=== PATIENT | female | born 1950 | race Caucasian/White ===

== ENCOUNTER → 2016-09-08 | Outpatient (REF) | payer MEDICARE, OTHER ==
[~2016-09-08] MED LIST: ATEN50TA2 PO; CALC500T36 PO; EVEN500C2 PO; MULTTAB12 PO; [UNRECOGNIZED DRUG - CODE] PO
== END ==
LOC: M LAB REF 13:26
PROVIDERS: ATTEND Internal Medicine Medical Oncology
DX: C91.10 Chronic lymphocytic leukemia of B-cell type not having achieved remission (principal)

== ENCOUNTER → 2016-09-12 | Day surgery (SDC) | payer MEDICARE, OTHER ==
[~2016-09-12] VITALS: Ht 165.1 cm; Wt 77.6 kg
[~2016-09-12] MED LIST changes: +BACITRACIN OINT 30GM As Ordered ONE; +GLYCOPYRROLATE INJ 0.2 MG/ML 2 ML VIAL As Ordered ONE; +LIDOCAINE 2% INJ 100 MG/5 ML SDV (FOR ANES.) As Ordered ONE; +LIDOCAINE W/EPINEPHRINE 1% 20ML VIAL As Ordered ONE; +LIDOCAINE W/EPINEPHRINE 1% 20ML VIAL XX ONE; +LR 1,000 ML IV SCH; +METOCLOPRAMIDE INJ 10MG/2ML VIAL (J2765) IV PRN; +MIDAZOLAM INJ 2 MG/2 ML VIAL (J2250) As Ordered ONE; +MORPHINE 2 MG/ML 1ML SYRINGE IV PRN; +NEOSTIGMINE 1MG/ML 5 ML SYRINGE (J2710) As Ordered ONE; +ONDANSETRON 4MG/2ML VIAL (J2405) As Ordered ONE; +ONDANSETRON 4MG/2ML VIAL (J2405) IV PRN; +PERCOCET 5MG/325MG TAB PO PRN; +PHENYLephrine HCL 500 MCG/5 ML (100MCG/ML) SYRINGE (J2370) As Ordered ONE; +PROPOFOL 200 MG/20 ML VIAL As Ordered ONE; +ROCURONIUM BROMIDE 50 MG/5 ML VIAL As Ordered ONE; +dexameTHASONE 4 MG/ML 1ML VIAL (J1100) As Ordered ONE; +ePHEDrine SULFATE 25 MG/5 ML(5MG/ML) SYRINGE As Ordered ONE; +fentaNYL 100 MCG/2 ML INJECTION (J3010) IV PRN; +fentaNYL 250 MCG/5 ML INJECTION (J3010) As Ordered ONE
[2016-09-12] MEDS: LR 1,000 ML IV SCH ×2 (10:54→13:58)
[2016-09-12 15:45] VITALS: BP 131/61
--- NOTE | 2016-09-12 18:33 | ECGEPIP ---
Stationary ECG Study [facility] Test Date: 2016-09-12 Pat Name: SANJAY ATKINS Department: Room: - Gender: F Machine Set Up Technician: TISH : 1950 Requested By: EVAN Fontaine Order Number: [id number] Reading MD: Santo Alvarado Measurements Intervals [place] Rate: 74 P: 46 OR: 211 QRS: -1 QRSD: 90 T: -19 QT: 386 QTc: 429 Interpretive Statements SINUS RHYTHM WITH BORDERLINE FIRST DEGREE AV BLOCK LEFT VENTRICULAR HYPERTROPHY NONSPECIFIC T-WAVE ABNORMALITY NO PRIOR TRACING Electronically Signed On 09-12-2016 18:33:35 EST by Santo Alvarado
--- NOTE | 2016-09-13 00:03 | RO ---
DATE OF PROCEDURE: 09/12/2016 PREOPERATIVE DIAGNOSIS: Mass left neck. POSTOPERATIVE DIAGNOSIS: Mass left neck. PROCEDURE: Excisional biopsy of lesion left neck. SURGEON: Dr. Ernesto Alcantar DATABASE SECURITY EXPERT: Layo Parsons ANESTHESIA: DESCRIPTION OF PROCEDURE: Under general anesthesia with the patient intubated, the patient was draped and prepped in the usual manner. I marked out the incision, infiltrated with lidocaine and epinephrine, divided the skin and subcutaneous tissues and platysma. There were mass of lymph nodes. I dissected around them with the cautery and Harmonic scalpel. I removed one of the lymph nodes, which was it was a mass of and then I cauterized the area with the bipolar cautery. Patient tolerated the procedure well. Minimal blood loss. I put in a Yuri drain and closed the wound with #4-0 Vicryl and #5-0 nylon. The patient was transferred to the recovery room in excellent condition.
== END | disposition home or self-care (01) ==
LOC: M SDC 10:04
PROVIDERS: ATTEND Otolaryngology
DX: R22.1 Localized swelling, mass and lump, neck (principal); I10 Essential (primary) hypertension; C91.10 Chronic lymphocytic leukemia of B-cell type not having achieved remission; M12.9 Arthropathy, unspecified; M54.2 Cervicalgia; Z88.0 Allergy status to penicillin; Z88.1 Allergy status to other antibiotic agents; Z88.5 Allergy status to narcotic agent; Z88.8 Allergy status to other drugs, medicaments and biological substances; Z79.899 Other long term (current) drug therapy; Z78.0 Asymptomatic menopausal state; Z98.51 Tubal ligation status; Z87.891 Personal history of nicotine dependence
CPT/HCPCS: 38510; 88305; 93005; J1100; J2250; J2370; J2405; J2710; J3010

== ENCOUNTER → 2016-09-21 | Outpatient (REF) | payer MEDICARE, OTHER ==
[~2016-09-21] MED LIST changes: -BACITRACIN OINT 30GM As Ordered ONE; -GLYCOPYRROLATE INJ 0.2 MG/ML 2 ML VIAL As Ordered ONE; -LIDOCAINE 2% INJ 100 MG/5 ML SDV (FOR ANES.) As Ordered ONE; -LIDOCAINE W/EPINEPHRINE 1% 20ML VIAL As Ordered ONE; -LIDOCAINE W/EPINEPHRINE 1% 20ML VIAL XX ONE; -LR 1,000 ML IV SCH; -METOCLOPRAMIDE INJ 10MG/2ML VIAL (J2765) IV PRN; -MIDAZOLAM INJ 2 MG/2 ML VIAL (J2250) As Ordered ONE; -MORPHINE 2 MG/ML 1ML SYRINGE IV PRN; -NEOSTIGMINE 1MG/ML 5 ML SYRINGE (J2710) As Ordered ONE; -ONDANSETRON 4MG/2ML VIAL (J2405) As Ordered ONE; -ONDANSETRON 4MG/2ML VIAL (J2405) IV PRN; -PERCOCET 5MG/325MG TAB PO PRN; -PHENYLephrine HCL 500 MCG/5 ML (100MCG/ML) SYRINGE (J2370) As Ordered ONE; -PROPOFOL 200 MG/20 ML VIAL As Ordered ONE; -ROCURONIUM BROMIDE 50 MG/5 ML VIAL As Ordered ONE; -dexameTHASONE 4 MG/ML 1ML VIAL (J1100) As Ordered ONE; -ePHEDrine SULFATE 25 MG/5 ML(5MG/ML) SYRINGE As Ordered ONE; -fentaNYL 100 MCG/2 ML INJECTION (J3010) IV PRN; -fentaNYL 250 MCG/5 ML INJECTION (J3010) As Ordered ONE
== END ==
LOC: M LAB REF 12:42
PROVIDERS: ATTEND Internal Medicine Medical Oncology
DX: C91.10 Chronic lymphocytic leukemia of B-cell type not having achieved remission (principal)

== ENCOUNTER → 2016-10-06 | Outpatient (REF) | payer MEDICARE, OTHER ==
[2016-10-06 20:02] LABS: MAGNESIUM LEVEL 2.5 MG/DL (1.8-2.4); PHOSPHORUS LEVEL 3.5 MG/DL (2.5-4.9); URIC ACID 3.6 MG/DL (2.6-6.0)
== END ==
LOC: M LAB REF 17:28
PROVIDERS: ATTEND Internal Medicine Medical Oncology
DX: C85.90 Non-Hodgkin lymphoma, unspecified, unspecified site (principal)

== ENCOUNTER 2016-10-27 13:22 | Inpatient (IN) | payer MEDICARE, OTHER ==
[~2016-10-27] VITALS: Ht 165.1 cm; Wt 78.1 kg
[2016-10-27] MEDS ORDERED: BENA25CA4 (13:42)
[2016-10-27] MEDS ORDERED: ONDA1TAB16 (13:42)
[2016-10-27] MEDS ORDERED: HYDR2.5L (13:42)
[2016-10-27] MEDS ORDERED: OMEP40CA2 (13:42)
[2016-10-27] MEDS ORDERED: NS 500 ML IV ONE (14:30)
[2016-10-27 14:47] LABS: BASO % 0.1 % (0.0-1.0); EOS # 1.6 K/mm3 (0.0-0.50); EOS % 7.7 % (0.0-3.0); LARGE UNSTAINED CELL # 0.6 K/mm3 (0.0-0.4); LARGE UNSTAINED CELL % 2.8 % (0.0-4.0); LYMPH # 2.2 K/mm3 (1.5-4.5); LYMPH % 7.5 % (24.0-44.0); MEAN CORPUSCULAR HEMOGLOBIN 30.8 pg (27.0-33.0); MEAN CORPUSCULAR HGB CONC 34.8 g/dl (32.0-36.5); MEAN CORPUSCULAR VOLUME 88.5 fl (80.0-96.0); MONO # 0.7 K/mm3 (0.0-0.8); MONO % 3.1 % (0.0-5.0); NEUTROPHILS # 16.9 K/mm3 (1.8-7.7); NEUTROPHILS % 78.8 % (36.0-66.0); PLATELET COUNT, AUTOMATED 168 k/mm3 (150-450); RED CELL DISTRIBUTION WIDTH 14.7 % (11.5-14.5); WHITE BLOOD COUNT 21.4 K/mm3 (4.0-10.0)
--- NOTE | 2016-10-27 15:07 | REP ---
Portable chest x-ray: Single view. History: Near-syncope. Findings: There is some plate-like atelectasis in the right lower lobe versus linear scarring. Lung morales are otherwise well inflated and clear. Pleural angles are sharp. Heart is not felt to be enlarged. EKG electrodes are seen. Impression: Linear plate-like atelectasis versus scarring right base. Otherwise no acute disease. Signed by Dg Aguero MD 10/27/2016 04:27 P
[2016-10-27 15:13] LABS: ALBUMIN/GLOBULIN RATIO 1.36 (1.00-1.93); ALKALINE PHOSPHATASE 97 U/L (45-117); ALT/SGPT 143 U/L (12-78); ANION GAP 12 MEQ/L (8-16); AST/SGOT 142 U/L (15-37); BILIRUBIN,DIRECT 0.1 MG/DL (0.0-0.2); BILIRUBIN,TOTAL 0.4 MG/DL (0.2-1.0); BLOOD UREA NITROGEN 23 MG/DL (7-18); CALCIUM LEVEL 7.4 MG/DL (8.8-10.2); CARBON DIOXIDE LEVEL 20 MEQ/L (21-32); CHLORIDE LEVEL 104 MEQ/L (98-107); CREATININE FOR GFR 1.41 MG/DL (0.55-1.02); GLUCOSE, FASTING 150 MG/DL (80-110); POTASSIUM SERUM 4.3 MEQ/L (3.5-5.1); SODIUM LEVEL 136 MEQ/L (136-145); TOTAL PROTEIN 5.2 GM/DL (6.4-8.2)
[2016-10-27] MEDS ORDERED: VITA1TAB23 PO (16:55)
[2016-10-27] MEDS ORDERED: BENA25CA4 PO (16:55)
[2016-10-27] MEDS ORDERED: EVEN500C2 PO (16:55)
[2016-10-27] MEDS ORDERED: HYDR2.5L TOP (16:55)
[2016-10-27] MEDS ORDERED: VITMTA PO (16:55)
[2016-10-27] MEDS ORDERED: CALC600T10 PO (16:55)
[2016-10-27] MEDS ORDERED: ZOFR8TAB PO (16:55)
[2016-10-27] MEDS ORDERED: ATEN50TA2 PO (16:55)
[2016-10-27] MEDS ORDERED: NS 1,000 ML IV ONE (18:45)
[2016-10-27] MEDS ORDERED: ACETAMINOPHEN TAB 650MG DOSE (2X325MG) PO PRN (18:45)
[2016-10-27] MEDS ORDERED: ONDANSETRON 4MG/2ML VIAL (J2405) IV PRN (18:45)
[2016-10-27] MEDS ORDERED: LevoFLOXacin IV 500 MG in APPROPRIATE DILUENT 1 EA IV ONE (19:30)
[2016-10-27] MEDS ORDERED: LORazepam 2 MG/ML VIAL (J2060) IV PRN (20:15)
[2016-10-27] MEDS ORDERED: VANCOMYCIN HCL 1,000 MG, VIAL MATE ADAPTER 1 EACH in D5W 250 ML IV ONE (20:30)
[2016-10-27 20:40] VITALS: BP 95/54
[2016-10-27 20:41] VITALS: BP_SYST 101; BP_SYST 102; BP_DIAS 50; BP_DIAS 57
--- NOTE | 2016-10-27 20:41 | ECGEPIP ---
Stationary ECG Study [facility] - ED Test Date: 2016-10-27 Pat Name: SANJAY ATKINS Department: Room: - Gender: F Slide Fastener Repairer: sebastian : 1950 Requested By: MG Alcantar Order Number: [id number] Reading MD: Juan Welch Measurements Intervals [place] Rate: 71 P: 47 IA: 170 QRS: 5 QRSD: 100 T: -11 QT: 394 QTc: 430 Interpretive Statements SINUS RHYTHM NONSPECIFIC T-WAVE ABNORMALITY IVCD NONSPECIFIC ST T WAVE CHANGES CW 09/12/16 - RATE DECREASED NONSPECIFIC ST T WAVE CHANGES Electronically Signed On 10-27-2016 20:41:13 EST by Juan Welch
--- NOTE | 2016-10-27 21:10 | HPEPDOC ---
General Date of Admission Oct 27, 2016 at 18:35 Other Providers PCP: Jacqui Baez Attending Physician: SHANI RAMIREZ Chief Complaint The patient is a 66-year-old female admitted with a reason for visit of Hypotension. Source: Patient, Other () Exam Limitations: No limitations Timing/Duration: This morning Severity: Severe Associated Symptoms: Fever, Loss of appetite, Nausea, Weakness, Hypotension, Dizziness, Other (Lightheadedness) History of Present Illness PRIMARY CARE PROVIDER: Jacqui Baez CHIEF COMPLAINT: Lightheadedness this morning and Hypotension at Dr. Rhiannon Duarte's Oncology Office HISTORY OF PRESENT ILLNESS: This is a 66-year-old female with a PMH significant for Hypertension and Chronic Lymphocytic Leukemia status-post 2 doses of chemotherapy, is presenting for a hypotensive episode that occurred this morning at a follow up appointment with Dr. Rhiannon Duarte's office with a BP of ~63/43. Also took 1 pill of zofran this AM as she was feeling nauseous. Reports she woke up this morning lightheaded and went to Dr. Duarte's office. Reports that she was supposed to have more chemotherapy today but didn't get it due to low BP. Patient reports she was given a [address] Duarte's office and her BP went up to 88-90s/64. Was also treated for with 1 dose of tylenol due to fever of 101.3 which came down to 100. Her states that she felt warm to the touch today and 1 or 2 days ago as well, but no temperature with a thermometer was taken. After the [address] Duarte's office, the patient was brought straight to [facility] ED. In addition, the patient states she had received her second dose of chemotherapy yesterday with extra steroids due to previous severe "allergic reaction" that occurred after her 1st dose of chemotherapy ~1 month ago. States last time she had gotten chemo, she became very sick for ~4 days, couldn't eat, was very chilled, had cold sweats in the middle of the night , and lost 10 lbs in 4 days. Therefore, with her second dose of chemo, steroids were administered. In addition, patient reports that she had an allergic reaction from taking allopurinol last Monday when she developed a rash on her arms, chest, abdomen, and back, which she has been taking steroids for as well. She has since stopped the allopurinol and is now taking hydrocortisone topical for her rash rxn. In the ED, a workup was done that was significant for an elevated WBC of 21.4, H &H of 10 and 28.7 with an MCV of 88.5 and RDW of 14.7, neutrophil %: 78.8, neutrophil # of 16.9, eosinophil #: 1.6, lactic acid of 2.4, BUN/Cr of 23/1.41 ( elevated from baseline Cr of ~1), glucose of 150, total protein of 5.2, elevated LFTs of ALT: 143 and AST: 142, alk phos: 97 (WNL), an EKG which showed NSR with nonspecific T-wave abnormality with a normal axis and no ST segment wave elevations/depressions at a Rate of 71. A CXR was done and showed linear plate-like atelectasis versus scarring at the R base but no acute disease. Blood cultures were ordered and are now pending. The patient was administered a 500 mL bolus when arriving to the ED and her BP went up to the 90s-100s systolic. ALLERGIES: Cephalosporins: Rash Erythromycin derivatives: Rash Penicillin: Rash Tylenol #3 (Acetaminophen + Codeine): Rash Rocephin: Shortness of Breath PAST MEDICAL HISTORY: Chronic Lymphocytic Leukemia Hypertension L Neck Mass PAST SURGICAL HISTORY: Cholecystectomy Tubal Ligation Tonsillectomy 2 Cervical Lymph Node Removals with Biopsies L axilla lymph node removal with Biopsy Neck Surgery for Arthritis MEDICATIONS: Atenolol 50 mg PO daily Zofran 8 mg PRN nausea Benadryl 25 mg cap Allergy Oyster Shell Calcium 500 mg PO daily Hydrocortisone 2.5% Lot #118 Multivitamin 1 tab PO daily Vitamin C 500 mg 2-3 pills twice daily Evening Filion Oil 500 mg PO daily Vitamin D: 1 pill daily unknown dose. SOCIAL HISTORY: Lives at home with only. Former Smoker: smoked 1 pack per week 3 years ago x 35 years and quit cold turkey. EtOH use: has a couple of drinks every evening for ~5-10 years, mainly beer but sometimes wine. No illicit drug use. No recent sick contacts. No recent travel. No restaurant food this week or eating anything out of the ordinary this week. Does report having a fish dinner at [employer] in [place] a few weeks ago. FAMILY HISTORY: Parents: HTN Father: Stroke and Diabetes 74 yo Brother: Pancreatic Cancer CODE STATUS: FULL CODE: wants CPR and intubation. Has advanced directive: living will Has Healthcare Proxy: daughter Carmenza Thomas REVIEW OF SYSTEMS: Constitutional: Admits to fatigue and recent 10 lbs weight loss ~1 month ago in 4 days after 1st chemotherapy session. Denies fevers, chills, night sweats. Admits to feeling warm. HEENT: Denies headache. Currently, denies dizziness, light-headedness. Eyes: denies blurry vision. Ears: denies hearing loss. Denies sore throat, cough, difficulty swallowing. Cardiovascular: Denies chest pain, palpitations. Respiratory: Denies shortness of breath, difficulty breathing. Gastrointestinal: Denies nausea, vomiting, diarrhea, constipation, melena, hematochezia. Admits to stomach pain/upset when drinking carbonated drink gingerale today which hurt. : denies dysuria, hematuria Musculoskeletal: Admits to weakness. Denies muscle / joint stiffness, pain, swelling. Neurological: Denies dizziness, headache, numbness, tingling, focal weakness. Integumentary: Admits to allergic rxn rash on forearms, upper arms, abdomen, chest, back (after allopurinol). Endocrine: Denies polyuria, polydipsia, heat intolerance/cold intolerance. Admits to extreme fatigue. PHYSICAL EXAMINATION: Initial ED Vitals: Temperature 98.8 , blood pressure 91/51 (64) , pulse 73 , respiratory rate 19 , pulse ox: 100% room air, General: HEENT: Head: normocephalic, atraumatic. Eyes: Sclera are nonicteric. Nose: No external lesions. Ears: Grossly normal hearing bilaterally. Lips intact. Neck: No cervical LAD bilaterally. No thyromegaly. Respiratory: clear to auscultation in upper and middle lung morales bilaterally. Mild crackles appreciable in bases bilaterally. Cardiovascular: regular rate and rhythm, with no murmurs, rubs or gallops. Chest: Symmetrical chest rise bilaterally. Abdomen: soft, nontender, nondistended, no hepatosplenomegaly appreciated. Bowel sounds present. Erythematous macular rash on abdomen. Extremities:No edema in either lower extremity bilaterally. Neurological: No focal neurologic deficits appreciated bilaterally. Musculoskeletal: Normal ROM. Lymphatics: no palpable lymph nodes, swollen glands Integumentary: +Erythematous macular rash on abdomen extending all the way up to bilateral breasts to upper chest wall, on the back, and on the flexural surfaces of the forearms and upper arms bilaterally Vascular: +2 dorsalis pedis and radial pulses palpable and symmetrical bilaterally LABORATORY DATA: See below MICROBOIOLOGY: See below Blood cx pending. ELECTROCARDIOGRAM: As stated above. RADIOLOGY: CXR as stated above. ASSESSMENT: 66-year-old female is presenting for hypotension and possible fever (no medical records/hospital records to support this) of unknown etiology. Admitted with hypotension, leukocytosis, acute kidney injury, and possible fever. Suspect dehydration vs. infection. PLAN: #1. Hypotension: Likely secondary to dehydration vs. infection. Volume status improved with IV fluid boluses, BP responded to fluids. Will admit to telemetry , hold BP medications, and check orthostatics BID, vitals q4 hours. [address] on a 2g sodium diet. Will check CBC and CMP daily. Will also check TSH level. Will give NS IVF @ 100 cc's/hr. Differential includes dehydration, orthostatic hypotension, infection, chemotherapy-induced drug reaction, UTI, gastroenteritis vs. other process. Will give zofran 4 mg IV q6h PRN for nausea. Reevaluate patient's status in the AM. #2. Leukocytosis of 21.4: Possibly secondary to CLL or steroids or infection. Continue to monitor CBC. Blood cx pending. Follow up when available. Will treat with 1 dose of vancomycin and 1 dose of levaquin tonight (cannot use zosyn due to penicillin allergy). Will reevaluate and reassess in the morning whether patient develops fever or leukocytosis worsens. Will monitor and decide if antibiotics will be continued. Will check urinalysis as well. #3. Acute Kidney Injury: Possibly secondary to chemotherapy due to tumor lysis syndrome vs. prerenal azotemia vs. acute tubular necrosis. Will give IV fluids as stated above. Will obtain random urine Na and random urine Cr and calculate FENa when values available. Have ordered urinalysis and urine cultures. Will follow up CMP and monitor BUN/Cr. Replete electrolytes as necessary. #4. Elevated Lactic Acid of 2.4: Will check a lactic acid level at 8 PM tonight and continue to monitor if necessary. Likely due to dehydration and poor perfusion. #5. Elevated LFTs: Will check a hepatitis profile to evaluate for hepatitis B or C. This may be secondary to dehydration as well. #6 Allergic Rxn Rash: We'll give Benadryl 50 mg PRN TID for any rash/allergic reaction/itching. #7. Possible Fever: Will give tylenol PRN and monitor for fever. #8. CLL: Continue current management and follow hematology/oncology recommendations if available. Consider Hem/Onc consult. #9. HTN: hold home BP medications for now until hypotension resolves. #10. EtOH use: Will add ativan 2 mg IV q2 hours PRN withdrawal symptoms. DVT prophylaxis: SCDs and subq heparin 5000 units q8 hours. No GI prophylaxis at this time. CODE STATUS: FULL CODE. Immunizations as per protocol. My preceptor for this patient encounter was Dr. Shani Ramirez, and was physically present in the building during the encounter and was fully available. As needed, all aspects of the patient interview, examination, medical decision making process, and medical care plan development were reviewed and approved by the preceptor. Preceptor is aware and concurs with the plan as stated in the body of this note and will attest to such by his/her cosignature. Home Medications Scheduled (Hydrocortisone) 2.5 % Lot 1 DOSE TOP BID (Reported) Ascorbic Acid (Vitamin C) 250 Mg Tab 250 MG PO BID (Reported) Calcium (Calcium) 600 Mg Tab 600 MG PO DAILY (Reported) Evening Filion Oil (Evening Filion Oil) 500 Mg Cap 500 MG PO DAILY ( Reported) Multivitamins *[facility] STOCKED* (Thera M Plus *[facility] STOCKED*) 1 Tab Tab 1 TAB PO DAILY (Reported) Scheduled PRN Diphenhydramine HCl (Benadryl Allergy) 25 Mg Cap 50 MG PO TID PRN PRN ITCHING ( Reported) Ondansetron HCl (Zofran) 8 Mg Tab 8 MG PO BID PRN PRN NAUSEA OR VOMITING ( Reported) Allergies Coded Allergies: Allopurinol (Verified Allergy, Severe, rash, 10/27/16) Ceftriaxone (Unverified Allergy, Severe, SOB, 09/09/16) Codeine (Unverified Allergy, Mild, RASH, 09/09/16) Erythromycin (Unverified Allergy, Mild, RASH, 09/09/16) Penicillin G (Unverified Allergy, Mild, RASH, 09/09/16) Cephalosporins (Verified Allergy, Unknown, rash, 10/27/16) Social History * Smoker: former Smoker Alcohol: occationally Drugs: denies Recent Travel/Sick Contacts: Denies: Recent sick contacts, Recent travel Psychosocial History: No pertinent psych hx Vital Signs As above. Laboratory Data Labs 24H Laboratory Tests 2 10/27/16 14:30: Aspartate Amino Transf (AST/SGOT) 142H, Alanine Aminotransferase (ALT/SGPT) 143H , Alkaline Phosphatase 97, Total Bilirubin 0.4, Direct Bilirubin 0.1, Albumin 3.0L, Albumin/Globulin Ratio 1.36, Anion Gap 12, White Blood Count 21.4H, Red Blood Count 3.24L, Hemoglobin 10.0L, Hematocrit 28.7L, Mean Corpuscular Volume 88.5, Mean Corpuscular Hemoglobin 30.8, Mean Corpuscular Hemoglobin Concent 34.8 , Red Cell Distribution Width 14.7H, Platelet Count 168, Neutrophils (%) (Auto) 78.8H, Lymphocytes (%) (Auto) 7.5L, Monocytes (%) (Auto) 3.1, Eosinophils (%) ( Auto) 7.7H, Basophils (%) (Auto) 0.1, Neutrophils # (Auto) 16.9H, Lymphocytes # (Auto) 2.2, Monocytes # (Auto) 0.7, Eosinophils # (Auto) 1.6H, Basophils # (Auto ) 0.0, Calcium Level 7.4L, Creatine Kinase MB 1.0, Creatine Kinase MB Relative Index 4.16H, Glomerular Filtration Rate 40.0L, Lactic Acid (Sepsis) 2.4*H, Large Unclassified Cells # 0.6H, Large Unclassified Cells % 2.8, Thyroid Stimulating Hormone (TSH) 1.270, Total Creatine Kinase 24L, Total Protein 5.2L, Troponin I < 0.02 10/27/16 19:06: Lactic Acid Level 1.1 CBC/BMP Laboratory Tests 10/27/16 14:30 Red Blood Count 3.24 L, Mean Corpuscular Volume 88.5, Mean Corpuscular Hemoglobin 30.8, Mean Corpuscular Hemoglobin Concent 34.8, Red Cell Distribution Width 14.7 H, Neutrophils (%) (Auto) 78.8 H, Lymphocytes (%) (Auto ) 7.5 L, Monocytes (%) (Auto) 3.1, Eosinophils (%) (Auto) 7.7 H, Basophils (%) ( Auto) 0.1, Neutrophils # (Auto) 16.9 H, Lymphocytes # (Auto) 2.2, Monocytes # ( Auto) 0.7, Eosinophils # (Auto) 1.6 H, Basophils # (Auto) 0.0 Microbiology Microbiology 10/27/16 Blood Culture, Received Pending 10/27/16 Blood Culture, Received Pending Plan / VTE VTE Prophylaxis Ordered?: Yes VTE Exclusion Mechanical Proph: Patient on IV Heparin Plan Diet: Continue Current Activity: Bedrest Therapy: PT Medications: Start Antibiotics Diagnostics: Check Labs, Repeat Labs in AM, Obtain Cultures, Other Diagnostics (Orthostatics) Anticipated Discharge: Home Advanced Directives: Health Care Proxy (HCP) (Daughter Carmenza Thomas) Attending Note Attending Note I, Shani Ramirez, have seen and examined the above patient and agree with the assessment and plan as documented above. KRISTOFER SANTANA OGME-1 Oct 27, 2016 21:10 SHANI RAMIREZ Oct 31, 2016 12:19
[2016-10-27] MEDS: diphenhydrAMINE 25 MG CAP PO PRN (21:15)
[2016-10-27] MEDS: NS 1,000 ML IV SCH (21:15)
--- NOTE | 2016-10-27 23:36 | PHACANCOPD ---
PHARMACY VANCOMYCIN DOSING Pt Demographics Demographics Patient Age:66 , Weight: 79KG , Gender: female Adjusted Body Weight Events Past 24 Hours Events Past 24 Hours: NO: Change in CrCl, Dialysis, Diuretic Therapy, Elevation in WBC, Fever, Other, Pending Diagnostics, Pending Procedures Vancomycin Vancomycin Target Ranges: 10-20 mcg/ml Vancomycin Load Y/N: Yes Load Dose Date Time Vancomycin Load Dose: 1.5GM Date: 10/27/16 Time: 23:00 Vancomycin Dose Date: 10/28/16. Current Vancomycin Dose: [1GM IV Q12H starting at 10AM] Intermittent Dosing?: No Labs Labs Laboratory Tests 10/27/16 14:30 Red Blood Count 3.24 L, Mean Corpuscular Volume 88.5, Mean Corpuscular Hemoglobin 30.8, Mean Corpuscular Hemoglobin Concent 34.8, Red Cell Distribution Width 14.7 H, Neutrophils (%) (Auto) 78.8 H, Lymphocytes (%) (Auto ) 7.5 L, Monocytes (%) (Auto) 3.1, Eosinophils (%) (Auto) 7.7 H, Basophils (%) ( Auto) 0.1, Neutrophils # (Auto) 16.9 H, Lymphocytes # (Auto) 2.2, Monocytes # ( Auto) 0.7, Eosinophils # (Auto) 1.6 H, Basophils # (Auto) 0.0 Micro Microbiology 10/27/16 Blood Culture, Received Pending 10/27/16 Blood Culture, Received Pending Creatinine Clearance Date:10/27/16. Creatinine Clearance: [<50 Ml/min]. Assessment and Plan Maintaining Current Dose?: Yes Reason for dose change: Other Pharmacist Note Pharmacist Note Date: 10/27/16. Pharm.D. note: 66YO FEMALE, 65" in HEIGHT, 79KG in WT, SCR 1.4, CRCL <50 ml/min VANCO 1.5GM LD 23:00 FOLLOWED BY 1GM IV Q12H STARTING AT 10AM 10/28/16 VANCO TR WHEN AT STEADY STATE. EULOGIO MORIN [facility] Oct 27, 2016 23:36
[2016-10-27 23:51] VITALS: BP 88/50
[2016-10-28] VITALS (9 sets, daily range): BP systolic 88–107; BP diastolic 52–58
[2016-10-28] MEDS ORDERED: VANCOMYCIN HCL 500 MG in D5W MINI-BAG PLUS 100 ML IV ONE ×2
[2016-10-28] MEDS: HEPARIN SOD (PORCINE) 5000 UNITS/ML VIAL SC SCH ×2 (05:55→14:27)
[2016-10-28 06:12] LABS: BASO % 0.2 % (0.0-1.0); EOS # 2.5 K/mm3 (0.0-0.50); EOS % 18.4 % (0.0-3.0); LARGE UNSTAINED CELL # 0.5 K/mm3 (0.0-0.4); LYMPH # 1.4 K/mm3 (1.5-4.5); MEAN CORPUSCULAR HEMOGLOBIN 30.6 pg (27.0-33.0); MEAN CORPUSCULAR HGB CONC 34.4 g/dl (32.0-36.5); MEAN CORPUSCULAR VOLUME 88.9 fl (80.0-96.0); MONO # 0.4 K/mm3 (0.0-0.8); MONO % 3.2 % (0.0-5.0); NEUTROPHILS # 9.3 K/mm3 (1.8-7.7); NEUTROPHILS % 68.3 % (36.0-66.0); PLATELET COUNT, AUTOMATED 165 k/mm3 (150-450); RED CELL DISTRIBUTION WIDTH 14.7 % (11.5-14.5); WHITE BLOOD COUNT 13.6 K/mm3 (4.0-10.0)
[2016-10-28 06:29] LABS: ALBUMIN 2.7 GM/DL (3.2-5.2); ALBUMIN/GLOBULIN RATIO 1.17 (1.00-1.93); BILIRUBIN,TOTAL 0.4 MG/DL (0.2-1.0); CALCIUM LEVEL 7.4 MG/DL (8.8-10.2); CREATININE FOR GFR 1.1 MG/DL (0.55-1.02); GLOMERULAR FILTRATION RATE 53.2 (>45); POTASSIUM SERUM 3.9 MEQ/L (3.5-5.1)
[2016-10-28] MEDS: diphenhydrAMINE 25 MG CAP PO PRN (09:40)
[2016-10-28] MEDS: NS 1,000 ML IV SCH (09:41)
[2016-10-28] MEDS ORDERED: VANCOMYCIN HCL 1,000 MG, VIAL MATE ADAPTER 1 EACH in D5W 250 ML IV SCH (10:00)
[2016-10-28] MEDS ORDERED: MOM 30ML SUSPENSION UDC PO PRN (10:45)
--- NOTE | 2016-10-28 11:46 | IPNPDOC ---
Text Note Date of Service The patient was seen on 10/28/16. NOTE Subjective: 66 yo F admits to fatigue which she states is chronic. She denies any dizziness, headache, fevers, chills, chest pain, SOB while sitting up, nausea currently, vomiting, diarrhea, constipation, abdominal pain, rashes/lesions, dysuria, hematuria, hematochezia, or pain. Reports she feels alright. She reports no acute events overnight. Nursing reports no acute overnight events Objective: Vitals: T, P , RR , BP , Pulse Ox: % . I's/O's: mls. -mLs balance Incontinent Voids: BMs: yesterday. Wt:kg down from kg yesterday. General: Pleasant female sitting up comfortably in bed.Patient awake, alert and oriented, verbal and able to answer questions appropriately. She does not appear to be in any acute distress. HEENT: Normocephalic Atraumatic. Grossly normal hearing bilaterally. Sclera Nonicteric. No external nasal lesions. Endocrinology: No thyromegaly. Neck: Supple. No cervical LAD bilaterally. Heart: Regular rate and rhythm, normal S1-S2. No murmurs, rubs, clicks or gallops Chest: Lungs: No wheezes. Abdomen: Active bowel sounds, soft, nontender, no masses to palpation. Extremities: No clubbing, cyanosis. No pedal or ankle edema appreciable. Without amputations/deformities. MSK: Can sit up without dizziness. Vascular: +2 radial pulses and dorsalis pedis pulses bilaterally. Psychiatric: Normal affect. Laboratory data: Please see below. Imaging: No new imaging today. ASSESSMENT: 66-year-old female is presenting for hypotension and possible fever (no medical records/hospital records to support this) of unknown etiology. Admitted with hypotension, leukocytosis, acute kidney injury, and possible fever. Suspect dehydration vs. infection. PLAN: #1. Hypotension: Likely secondary to dehydration vs. infection. Volume status improved with IV fluid boluses, BP responded to fluids. Will admit to telemetry , hold BP medications, and check orthostatics BID, vitals q4 hours. [address] on a 2g sodium diet. Will check CBC and CMP daily. Will also check TSH level. Will give NS IVF @ 100 cc's/hr. Differential includes dehydration, orthostatic hypotension, infection, chemotherapy-induced drug reaction, UTI, gastroenteritis vs. other process. Will give zofran 4 mg IV q6h PRN for nausea. Reevaluate patient's status in the AM. #2. Leukocytosis of 21.4: Possibly secondary to CLL or steroids or infection. Continue to monitor CBC. Blood cx pending. Follow up when available. Will treat with 1 dose of vancomycin and 1 dose of levaquin tonight (cannot use zosyn due to penicillin allergy). Will reevaluate and reassess in the morning whether patient develops fever or leukocytosis worsens. Will monitor and decide if antibiotics will be continued. Will check urinalysis as well. #3. Acute Kidney Injury: Possibly secondary to chemotherapy due to tumor lysis syndrome vs. prerenal azotemia vs. acute tubular necrosis. Will give IV fluids as stated above. Will obtain random urine Na and random urine Cr and calculate FENa when values available. Have ordered urinalysis and urine cultures. Will follow up CMP and monitor BUN/Cr. Replete electrolytes as necessary. #4. Elevated Lactic Acid of 2.4: Will check a lactic acid level at 8 PM tonight and continue to monitor if necessary. Likely due to dehydration and poor perfusion. #5. Elevated LFTs: Will check a hepatitis profile to evaluate for hepatitis B or C. This may be secondary to dehydration as well. #6 Allergic Rxn Rash: We'll give Benadryl 50 mg PRN TID for any rash/allergic reaction/itching. #7. Possible Fever: Will give tylenol PRN and monitor for fever. #8. CLL: Continue current management and follow hematology/oncology recommendations if available. Consider Hem/Onc consult. #9. HTN: hold home BP medications for now until hypotension resolves. #10. EtOH use: Will add ativan 2 mg IV q2 hours PRN withdrawal symptoms. DVT prophylaxis: SCDs and subq heparin 5000 units q8 hours. No GI prophylaxis at this time. CODE STATUS: FULL CODE. Immunizations as per protocol. VS,Fishbone, I+O VS, Fishbone, I+O Laboratory Tests 10/27/16 14:30 Red Blood Count 3.24 L, Mean Corpuscular Volume 88.5, Mean Corpuscular Hemoglobin 30.8, Mean Corpuscular Hemoglobin Concent 34.8, Red Cell Distribution Width 14.7 H, Neutrophils (%) (Auto) 78.8 H, Lymphocytes (%) (Auto ) 7.5 L, Monocytes (%) (Auto) 3.1, Eosinophils (%) (Auto) 7.7 H, Basophils (%) ( Auto) 0.1, Neutrophils # (Auto) 16.9 H, Lymphocytes # (Auto) 2.2, Monocytes # ( Auto) 0.7, Eosinophils # (Auto) 1.6 H, Basophils # (Auto) 0.0 10/28/16 05:40 Red Blood Count 3.42 L, Mean Corpuscular Volume 88.9, Mean Corpuscular Hemoglobin 30.6, Mean Corpuscular Hemoglobin Concent 34.4, Red Cell Distribution Width 14.7 H, Neutrophils (%) (Auto) 68.3 H, Lymphocytes (%) (Auto ) 6.0 L, Monocytes (%) (Auto) 3.2, Eosinophils (%) (Auto) 18.4 H, Basophils (%) (Auto) 0.2, Neutrophils # (Auto) 9.3 H, Lymphocytes # (Auto) 1.4 L, Monocytes # (Auto) 0.4, Eosinophils # (Auto) 2.5 H, Basophils # (Auto) 0.0, Calcium Level 7.4 L, Aspartate Amino Transf (AST/SGOT) 50 H, Alanine Aminotransferase (ALT/ SGPT) 128 H, Alkaline Phosphatase 107, Total Bilirubin 0.4, Total Protein 5.0 L , Albumin 2.7 L Vital Signs Date Time Temp Pulse Resp B/P Pulse Ox O2 Delivery O2 Flow Rate FiO2 10/28/16 08:09 Room Air 10/28/16 07:50 70 102/57 10/28/16 07:40 98.6 18 97 I&O- Last 24 Hours up to 6 AM 10/28/16 06:00 Intake Total 1805 ml Output Total 2150 ml Balance -345 ml GME ATTESTATION GME ATTESTATION My preceptor for this patient encounter was Dr. Ashwin Aragon, and was physically present in the building during the encounter and was fully available. As needed, all aspects of the patient interview, examination, medical decision making process, and medical care plan development were reviewed and approved by the preceptor. Preceptor is aware and concurs with the plan as stated in the body of this note and will attest to such by his/her cosignature. ASHWIN SANTANA OGME-1 Oct 28, 2016 11:46
--- NOTE | 2016-10-28 19:42 | DS.PDOC ---
Discharge Summary General Date of Admission Oct 27, 2016 at 18:35 Date of Discharge Oct 28, 2016 at 19:07 Attending Physician: ASHWIN STINSON MD Discharge Summary Date of Discharge: 10/28/16 PCP: Jacqui Baez Attending Physician: Dr. Ashwin Stinson Consults: None Discharge diagnosis: Hypotension secondary to Dehydration Leukocytosis Acute Kidney Injury Secondary diagnosis: Elevated Lactic Acid Elevated LFTs Allergic Rash Reaction Chronic Lymphocytic Leukemia Hypertension EtOH use Hospital course: This is a 66-year-old female with a PMH significant for Hypertension and Chronic Lymphocytic Leukemia who presented to [facility] ED on 10/27/16 status-post 2 doses of chemotherapy with a hypotensive episode that occurred that morning at a follow up appointment with Dr. Rhiannon Duarte's office with a BP of ~63/ 43. Also took 1 pill of zofran that morning as she was feeling nauseous. Reported she woke up in the morning lightheaded and went to Dr. Duarte's office. Reported that she was supposed to have more chemotherapy that day but didn't get it due to low BP. Patient reported she was given a [address] Duarte's office and her BP went up to 88-90s/64. Was also treated for with 1 dose of tylenol due to fever of 101.3 which came down to 100 (according to patient, though I did see any supporting documentation for this since I did not have Dr. Duarte's office notes). Her said that she felt warm to the touch on the day of presentation and 1 or 2 days before as well, but no temperature with a thermometer was taken. After the [address] Duarte' s office, the patient was brought straight to [facility] ED. In addition, the patient stated she had received her second dose of chemotherapy the day prior with extra steroids due to previous severe "allergic reaction" that occurred after her 1st dose of chemotherapy ~1 month ago. States last time she had gotten chemo , she became very sick for ~4 days, couldn't eat, was very chilled, had cold sweats in the middle of the night, and lost 10 lbs in 4 days. Therefore, with her second dose of chemo, steroids were administered. In addition, patient reports that she had an allergic reaction from taking allopurinol the Monday prior to presentation, when she developed a rash on her arms, chest, abdomen, and back, which she has been taking steroids for as well. She has since stopped the allopurinol and was now taking hydrocortisone topical for her rash rxn. In the ED, a workup was done that was significant for an elevated WBC of 21.4, H &H of 10 and 28.7 with an MCV of 88.5 and RDW of 14.7, neutrophil %: 78.8, neutrophil # of 16.9, eosinophil #: 1.6, lactic acid of 2.4, BUN/Cr of 23/1.41 ( elevated from baseline Cr of ~1), glucose of 150, total protein of 5.2, elevated LFTs of ALT: 143 and AST: 142, alk phos: 97 (WNL), an EKG which showed NSR with nonspecific T-wave abnormality with a normal axis and no ST segment wave elevations/depressions at a Rate of 71. A CXR was done and showed linear plate-like atelectasis versus scarring at the R base but no acute disease. Blood cultures were ordered and are now pending. The patient was administered a 500 mL bolus when arriving to the ED and her BP went up to the 90s-100s systolic. During the hospital stay, the patient was admitted to the telemetry unit and vital signs were monitored q4h. Orthostatic vital signs were repeated and remained negative. Repeat lactic acid level was 1.1. TSH was WNL 1.27. Hepatitis profile was negative. AST and ALT went down to 52 and 128, respectively. WBC went down to 13.6. H&H went up to 10.5 and 30.4. Neutrophil # went down to 9.3 and % went down to 68.3. BUN and Cr went down to 17 and 1.10, respectively. Blood cx were down with the first set showing NGTD. The patient was treated with IVF hydration, vancomycin, and levaquin, and subcutaneous heparin with SCDs for DVT ppx. Patient had been ordered benadryl for her rash from allopurinol and ativan PRN for EtOH withdrawal/seizure possibility due to her history of EtOH use. Milk of magnesia was ordered for reported constipation on the day of discharge. Physical therapy also worked with the patient. The patient is clinically stable and has improved. Labs were as stated above. Please see below for full labs. Progress note on date of discharge: Subjective: Today, patient denies fevers, chills, dizziness, blurred vision, sore throat, earaches, runny nose, cough, chest pain, SOB, nausea, vomiting, diarrhea, weakness, fatigue, weight gain/loss, hematochezia, hematuria, rashes/lesions. Admits to 1 palpitation overnight and constipation. States she is feeling better and asking if she can go home. Nursing reported that patient remained stable with no acute overnight events. Objective: Vitals: T98.1, P 88, RR 18, BP 105/58 (74), Pulse Ox: 97 % room air I's/O's: 2660/2550, +110 mLs balance. General: HEENT: Head: normocephalic, atraumatic. Eyes: Sclera are nonicteric. Nose: No external lesions. Ears: Grossly normal hearing bilaterally. Lips intact. Neck: No cervical LAD bilaterally. No thyromegaly. Respiratory: clear to auscultation bilaterally. No wheezes, rales, or rhonchi. Cardiovascular: regular rate and rhythm, with no murmurs, rubs or gallops. Chest: Symmetrical chest rise bilaterally. Abdomen: soft, nontender, nondistended, no hepatosplenomegaly appreciated. Bowel sounds present. Erythematous macular rash on abdomen improved from yesterday. Extremities:No edema in either lower extremity bilaterally. Neurological: No focal neurologic deficits appreciated bilaterally. Musculoskeletal: Normal ROM. Lymphatics: no palpable lymph nodes, swollen glands Integumentary: +Erythematous macular rash on abdomen extending all the way up to bilateral breasts to upper chest wall, on the back, and on the flexural surfaces of the forearms and upper arms bilaterally, which is improved from yesterday. Vascular: +2 dorsalis pedis and radial pulses palpable and symmetrical bilaterally Labs: Please see below. Assessment: 66-year-old female who was admitted with hypotension, leukocytosis, acute kidney injury, and possible fever, most likely all secondary to dehydration. Disposition/Plan: Discharge home today with follow up with PCP and Dr. Duarte Oncologist in 7 days. Discontinue atenolol 50 mg PO daily until seen by PCP due to low blood pressures in hospital. Continue all other home medications. Follow-up: Recommended with PCP and Dr. Duarte in 7 days. Activity: No restrictions and as tolerated. Diet: 2 gram sodium Medications on discharge: Vitamin C 250 mg PO BID Calcium 600 mg PO daily Benadryl 25 mg PO TID PRN itching Evening primrose oil 500 mg PO daily Hydrocortisone 2.5% Lot once topically BID Multivitamin 1 tab PO daily Zofran 8 mg PO BID PRN nausea/vomiting Medications Discontinued on Discharge: Atenolol 50 mg PO daily Time spent on discharge: 35 minutes. Vital Signs/I&Os Vital Signs Date Time Temp Pulse Resp B/P Pulse Ox O2 Delivery O2 Flow Rate FiO2 10/28/16 16:40 88 105/58 10/28/16 16:00 98.1 18 97 Room Air I&O- Last 24 Hours up to 6 AM 10/28/16 06:00 Intake Total 1805 ml Output Total 2150 ml Balance -345 ml Laboratory Data Labs 24H Laboratory Tests 2 10/28/16 05:40: Blood Urea Nitrogen 17, Creatinine 1.10H, Sodium Level 141, Potassium Level 3.9 , Chloride Level 111H, Carbon Dioxide Level 21, Calcium Level 7.4L, Aspartate Amino Transf (AST/SGOT) 50H, Alanine Aminotransferase (ALT/SGPT) 128H, Alkaline Phosphatase 107, Total Bilirubin 0.4, Total Protein 5.0L, Albumin 2.7L, Albumin/ Globulin Ratio 1.17, Anion Gap 9, White Blood Count 13.6H, Red Blood Count 3.42L , Hemoglobin 10.5L, Hematocrit 30.4L, Mean Corpuscular Volume 88.9, Mean Corpuscular Hemoglobin 30.6, Mean Corpuscular Hemoglobin Concent 34.4, Red Cell Distribution Width 14.7H, Platelet Count 165, Neutrophils (%) (Auto) 68.3H, Lymphocytes (%) (Auto) 6.0L, Monocytes (%) (Auto) 3.2, Eosinophils (%) (Auto) 18.4H, Basophils (%) (Auto) 0.2, Neutrophils # (Auto) 9.3H, Lymphocytes # (Auto ) 1.4L, Monocytes # (Auto) 0.4, Eosinophils # (Auto) 2.5H, Basophils # (Auto) 0.0, Glomerular Filtration Rate 53.2, Large Unclassified Cells # 0.5H, Large Unclassified Cells % 4.0 CBC/BMP Laboratory Tests 10/28/16 05:40 Calcium Level 7.4 L, Aspartate Amino Transf (AST/SGOT) 50 H, Alanine Aminotransferase (ALT/SGPT) 128 H, Alkaline Phosphatase 107, Total Bilirubin 0.4 , Total Protein 5.0 L, Albumin 2.7 L, Red Blood Count 3.42 L, Mean Corpuscular Volume 88.9, Mean Corpuscular Hemoglobin 30.6, Mean Corpuscular Hemoglobin Concent 34.4, Red Cell Distribution Width 14.7 H, Neutrophils (%) (Auto) 68.3 H , Lymphocytes (%) (Auto) 6.0 L, Monocytes (%) (Auto) 3.2, Eosinophils (%) (Auto ) 18.4 H, Basophils (%) (Auto) 0.2, Neutrophils # (Auto) 9.3 H, Lymphocytes # ( Auto) 1.4 L, Monocytes # (Auto) 0.4, Eosinophils # (Auto) 2.5 H, Basophils # ( Auto) 0.0 Microbiology Microbiology 10/27/16 Blood Culture - Preliminary, Resulted No growth after 24 hours . All specim... 10/27/16 Blood Culture - Preliminary, Resulted No growth after 24 hours . All specim... Discharge Medications Scheduled (Hydrocortisone) 2.5 % Lot 1 DOSE TOP BID (Reported) Ascorbic Acid (Vitamin C) 250 Mg Tab 250 MG PO BID (Reported) Calcium (Calcium) 600 Mg Tab 600 MG PO DAILY (Reported) Evening [place] Oil (Evening [place] Oil) 500 Mg Cap 500 MG PO DAILY ( Reported) Multivitamins *[facility] STOCKED* (Thera M Plus *[facility] STOCKED*) 1 Tab Tab 1 TAB PO DAILY (Reported) Scheduled PRN Diphenhydramine HCl (Benadryl Allergy) 25 Mg Cap 50 MG PO TID PRN PRN ITCHING ( Reported) Ondansetron HCl (Zofran) 8 Mg Tab 8 MG PO BID PRN PRN NAUSEA OR VOMITING ( Reported) Allergies Coded Allergies: Allopurinol (Verified Allergy, Severe, rash, 10/27/16) Ceftriaxone (Unverified Allergy, Severe, SOB, 09/09/16) Codeine (Unverified Allergy, Mild, RASH, 09/09/16) Erythromycin (Unverified Allergy, Mild, RASH, 09/09/16) Penicillin G (Unverified Allergy, Mild, RASH, 09/09/16) Cephalosporins (Verified Allergy, Unknown, rash, 10/27/16) GME ATTESTATION GME ATTESTATION My preceptor for this patient encounter was Dr. Ashwin Stinson, and was physically present in the building during the encounter and was fully available. As needed, all aspects of the patient interview, examination, medical decision making process, and medical care plan development were reviewed and approved by the preceptor. Preceptor is aware and concurs with the plan as stated in the body of this note and will attest to such by his/her cosignature. ASHWIN SANTANA OGME-1 Oct 28, 2016 19:42 Ceftriaxone (Unverified Allergy, Severe, SOB, 09/09/16) Codeine (Unverified Allergy, Mild, RASH, 09/09/16) Erythromycin (Unverified Allergy, Mild, RASH, 09/09/16) Penicillin G (Unverified Allergy, Mild, RASH, 09/09/16) Cephalosporins (Verified Allergy, Unknown, rash, 10/27/16) ASHWIN SANTANA OGWY-1 Oct 28, 2016 19:42
== END 2016-10-28 19:07 | disposition home or self-care (01) | DRG 315 ==
LOC: M ED 14:39 → M ED INP 18:35 → M PCU 20:32
PROVIDERS: ADMIT Hospitalist; ATTEND Internal Medicine
DX: I95.9 Hypotension, unspecified (principal); C91.10 Chronic lymphocytic leukemia of B-cell type not having achieved remission; N17.9 Acute kidney failure, unspecified; E86.0 Dehydration; I10 Essential (primary) hypertension; F10.10 Alcohol abuse, uncomplicated; D72.829 Elevated white blood cell count, unspecified; Z79.899 Other long term (current) drug therapy; Z88.5 Allergy status to narcotic agent; Z88.0 Allergy status to penicillin; Z88.8 Allergy status to other drugs, medicaments and biological substances; L27.0 Generalized skin eruption due to drugs and medicaments taken internally; T50.2X5D Adverse effect of carbonic-anhydrase inhibitors, benzothiadiazides and other diuretics, subsequent encounter

== ENCOUNTER 2019-07-19 01:51 | Inpatient (IN) | payer MEDICARE, OTHER ==
[~2019-07-19] VITALS: Ht 165.1 cm; Wt 77.1 kg
[~2019-07-19 01:51] MED LIST changes: +BENA25CA4; +BENA25CA4 PO; +BIOT1TAB PO; -CALC500T36 PO; +CALC500T61 PO; +CALC600T31 PO; +CALC600T60 PO; +CHOL50002 PO; +CODCAP PO; +CODCAP26 PO; +HYDR2.5L; +HYDR2.5L TOP; +IMBR1CAP PO; +MILK87.5 PO; +OMEP40CA97; +ONDA8TAB7; +REDCAP3 PO; +RIBO1CAP PO; +SELE200T10 PO; +TURMCAP PO; +TURMPOW PO; +VITA1TAB23 PO; +VITATAB11 PO; +VITMTA PO; +ZOFR8TAB24 PO; +[UNRECOGNIZED DRUG - OTHER] PO
[2019-07-19 04:15] VITALS: BP 143/66
[2019-07-19] MEDS ORDERED: SODIUM CHLORIDE 0.9% 1000ML IV SCH (04:45)
--- NOTE | 2019-07-19 05:21 | HPEPDOC ---
General Date of Admission Jul 19, 2019 at 04:15 Date of Service: Jul 19, 2019 Chief Complaint The patient is a 68-year-old female admitted with a reason for visit of Urinary Sepsis. Source: Patient Exam Limitations: No limitations Timing/Duration: 24 hours Severity: Mild History of Present Illness Patient is 68 years old female with past medical history of CLL, hypertension has been transferred from [facility] with diagnosis UTI and hyperleukocytosis. Patient stated that 6 days ago she started new medication Ibrutinib for CLL. Few days ago she developed severe diarrhea with nausea. Yesterday, she started noticing suprapubic pain with urinary frequency and she saw blood in her urine. In [facility] blood showed hyperleukocytosis of 184,000, hemoglobin of 11.7, platelet count 153. Urine analysis showed gross hematuria. Patient was afebrile with blood pressure of 148/65. CT abdomen and pelvis showed some kidney parenchyma inflammatory changes suspicious for pyelonephritis. I did not see official report. The information was provided by phone. Of note, from oncologist record she had an axillary lymph node biopsy done in September 2015. The patient was started on rituximab and bendamustine due to enlarging cervical lymph nodes in September 2016 with a normalization of her lymphocyte count. She had six cycles and completed this in January 2017. Started on the ibrutinib 6 days ago. She was followed expectantly in the interval since her last visit and has been noted to have WBC count going from 30-60,000. On 06/18/2019 her leukocytes count was 85,000. Home Medications Scheduled Ascorbic Acid (Vitamin C) 250 Mg Tab, 250 MG PO BID, (Reported) Atenolol (Atenolol) 50 Mg Tab, 50 MG PO DAILY, (Reported) Biotin (Biotin) 10 Mg Tablet, 10 MG PO DAILY, (Reported) Cholecalciferol (Vitamin D3) (Vitamin D3) 5,000 Unit Capsule, 5,000 UNIT PO DAILY, (Reported) Evening [place] Oil (Evening [place] Oil) 500 Mg Cap, 500 MG PO DAILY, (Reported) Hydrocortisone (Hydrocortisone) 2.5 % Lot, 1 DOSE TOP BID, (Reported) Ibrutinib (Imbruvica) 140 Mg Capsule, 3 CAP PO DAILY Ibrutinib (Imbruvica) 140 Mg Capsule, 3 CAP PO DAILY Methionine (l-Methionine) 100 Gm Powder, 100 GM MC DAILY, (Reported) Multivitamins (Thera M Plus Tablet) 1 Tab Tab, 1 TAB PO DAILY, (Reported) Red Yeast Rice (Red Yeast Rice) 600 Mg Capsule, 600 MG PO DAILY, (Reported) Selenomethionine (Selenium) 200 Mcg Tablet, 200 MCG PO DAILY, (Reported) Scheduled PRN Diphenhydramine HCl (Benadryl) 25 Mg Cap, 50 MG PO TID PRN for ITCHING, (Reported) Miscellaneous Medications B1/B2/B3/B5/B6/Fa/B12/C (Ribozel 159 mg Capsule) 1 Each Capsule, 1 CAP PO, (Reported) Calcium Carbonate (Calcium) 600 Mg Tablet, 600 MG PO, (Reported) Milk Thistle Seed Extract (Milk Thistle Extract) 87.5 Mg Cap, 87.5 MG PO, (Reported) Om3/Dha/Epa/Cod Liver Oil/A/D3 (Cod Liver Oil Softgel) 1 Each Capsule, 1 EACH PO, (Reported) Turmeric (Turmeric) 1 Gm Powder, 1 POW XX, (Reported) Allergies Coded Allergies: allopurinol (Verified Allergy, Severe, rash, 11/22/18) ceftriaxone (Verified Allergy, Severe, sob, 11/22/18) Cephalosporins (Verified Allergy, Intermediate, rash, 11/22/18) Penicillins (Verified Allergy, Intermediate, rash, 11/22/18) codeine (Verified Allergy, Intermediate, rash, 11/22/18) erythromycin base (Verified Allergy, Intermediate, rash, 11/22/18) Past Medical History Medical History CLL, GERD, hypertension Family History Both parents had hypertension, father had a stroke Social History * Smoker: Denies Alcohol: Denies Drugs: denies A-FIB/CHADSVASC A-FIB History Current/History of A-Fib/PAF?: No Current PO Anticoag Therapy: No Review of Systems Constitutional: Reports: Chills; Denies: Fever Eyes: Denies: Pain, Vision change ENT: Denies: Head Aches Skin: Denies: Rash Pulmonary: Denies: Dyspnea, Cough Cardiovascular: Reports: Palpitations; Denies: Chest Pain Gastrointestinal: Reports: Nausea, Abdominal Pain (suprapubic) Genitourinary: Reports: Dysuria, Frequency, Hematuria Hematologic: Denies: Bruising Endocrine: Denies: Polydipsia, Polyphagia Musculoskeletal: Denies: Neck Pain, Back Pain Neurological: Denies: Weakness, Numbness Psych: Reports: Mood Normal Physical Examination General Exam: Positive: Alert, Cooperative Eye Exam: Positive: PERRLA, Conjunctiva & lids normal ENT Exam: Positive: Atraumatic Neck Exam: Positive: Supple; Negative: JVD Chest Exam: Positive: Clear to auscultation Heart Exam: Positive: Tachycardic Telemetry: Positive: Sinus Abdomen Exam: Positive: Normal bowel sounds Extremity Exam: Negative: Clubbing Skin Exam: Positive: Nl turgor and temperature Neuro Exam: Positive: Normal Gait, Strength at 5/5 X4 ext, Cranial Nerves 3-12 NL Psych Exam: Positive: Mental status NL Assessment/Plan Patient is 68 years old female with past medical history of CLL, hypertension has been transferred from [facility] with diagnosis UTI and hyperleukocytosis. Patient stated that 6 days ago she started new medication Ibrutinib for CLL. Few days ago she developed severe diarrhea with nausea. Yesterday, she started noticing suprapubic pain with urinary frequency and she saw blood in her urine. In [facility] blood showed hyperleukocytosis of 184,000, hemoglobin of 11.7, platelet count 153. Urine analysis showed gross hematuria. Patient was afebrile with blood pressure of 148/65. CT abdomen and pelvis showed some kidney parenchyma inflammatory changes suspicious for pyelonephritis. Problems (1) UTI (urinary tract infection) Status: Acute Problem Text: Patient developed UTI most likely secondary to immunocompromised status Patient is afebrile. Patient does not have flank pain. I doubt that patient has pyelonephritis We'll obtain CT abdomen pelvis report from [facility] Cipro IV IV fluid Blood culture, sputum culture (2) Hyperleukocytosis Status: Acute Problem Text: Patient developed hyperleukocytosis. There is concern that patient can develop leukostasis. According to up-to-date symptoms of leukostasis are rare in CLL till white blood count exceeds 400,000 Continue to monitor her vital signs, especially dyspnea and hypoxia. Will continue to monitor neurological signs and symptoms. We'll repeat CBC with differential to confirm hyperleukocytosis. When I get conf irmation from the lab I will talk to oncologist about plan of treatment She is currently asymptomatic (3) Chronic lymphocytic leukemia not having achieved remission Status: Acute (4) Hypertension Status: Chronic Problem Text: Continue home cardioprotective medication Plan / VTE VTE Prophylaxis Ordered?: Yes DROZHZHIN,MINDY DO Jul 19, 2019 05:21
[2019-07-19] MEDS ORDERED: CLOB0.0526 TOP (05:40)
[2019-07-19] MEDS ORDERED: IMBR1CAP PO (05:41)
[2019-07-19 05:44] LABS: BASO # 0.1 10^3/uL (0.0-0.2); BASO % 0.1 % (0.0-1.0); EOS # 0.3 10^3/uL (0.0-0.5); EOS % 0.2 % (0.0-3.0); HEMATOCRIT 34.2 % (36.0-47.0); HEMOGLOBIN 10.7 g/dl (12.0-15.5); LYMPH # 125.2 10^3/uL (1.5-5.0); LYMPH % 88.5 % (24.0-44.0); MEAN CORPUSCULAR HGB CONC 31.3 g/dl (32.0-36.5); MEAN CORPUSCULAR VOLUME 99.1 fl (80.0-96.0); MONO % 4.1 % (0.0-5.0); NEUTROPHILS # 9.4 10^3/uL (1.5-8.5); NEUTROPHILS % 6.6 % (36.0-66.0); PLATELET COUNT, AUTOMATED 149 10^3/uL (150-450); RED BLOOD COUNT 3.45 10^6/uL (4.00-5.40)
[2019-07-19 06:05] LABS: ALBUMIN 3.9 GM/DL (3.2-5.2); ALT/SGPT 21 U/L (12-78); BILIRUBIN,TOTAL 0.6 MG/DL (0.2-1.0); BLOOD UREA NITROGEN 19 MG/DL (7-18); CALCIUM LEVEL 8.9 MG/DL (8.8-10.2); CARBON DIOXIDE LEVEL 21 MEQ/L (21-32); CHLORIDE LEVEL 109 MEQ/L (98-107); CREATININE FOR GFR 0.92 MG/DL (0.55-1.30); GLOMERULAR FILTRATION RATE > 60.0 (>45); GLUCOSE, FASTING 110 MG/DL (70-100); POTASSIUM SERUM 3.9 MEQ/L (3.5-5.1); SODIUM LEVEL 139 MEQ/L (136-145); TOTAL PROTEIN 6.6 GM/DL (6.4-8.2)
[2019-07-19] MEDS ORDERED: NS 1,000 ML IV ONE (06:30)
[2019-07-19 06:31] LABS: MONO # 5.8 10^3/uL (0.0-0.8); WHITE BLOOD COUNT 141.5 10^3/uL (4.0-10.0)
[2019-07-19 06:52] LABS: BILIRUBIN, URINE MANUAL NEGATIVE (NEGATIVE); GLUCOSE, URINE (UA) MANUAL NEGATIVE (NEGATIVE); KETONE, URINE MANUAL NEGATIVE (NEGATIVE); UROBILINOGEN, URINE MANUAL NORMAL (NORMAL)
[2019-07-19 06:58] LABS: BACTERIA, URINE SMALL AMOUNT; RBC, URINE TNTC /hpf (0-3)
[2019-07-19 08:00] VITALS: BP 138/66
[2019-07-19] MEDS: NS 1,000 ML IV SCH ×2 (08:47→18:06)
[2019-07-19] MEDS: ATENOLOL 50 MG TAB PO SCH (08:47)
[2019-07-19] MEDS: CIPROFLOXACIN 400 MG in IV 1 EA IV SCH ×2 (08:58→21:12)
[2019-07-19] MEDS ORDERED: HEPARIN SOD (PORCINE) 5000 UNITS/ML VIAL SC SCH (09:00)
--- NOTE | 2019-07-19 11:53 | IPNPDOC ---
Text Note Date of Service The patient was seen on 07/19/19. NOTE Subjective: -Feels so much better already, the pelvic pain and pressure, urgency, frequency and dysuria are subsiding. Still has mild flank pain Objective: Vitals: Hemodynamically stable, afebrile, see below General: Well appearing middle aged woman sitting up in bed in NAD HEENT: NCAT, PERRLA, EOMI, MMM Neck: Supple, no JVD, no palpale adenopathy Pulm: CTAB Cardiac: RRR, no mrg Abd: Normoactive, soft, mild tender in suprapubic area otherwise non tender. Mild bilateral flank pain Ext: WWP, no LE edema, 2+ DP pulses Neuro: Moving all extremities, AOx3, cranial nerves 3-12 intact Labs: Reviewed. Leukocytosis noted to be 141.5 from 108 on 06/18, H/H 10.7/34.3, platelets 149, normal BMP, LFTs, +UA with pending UCx and BCx. See below Assessment: 68 yo woman with CLL previously tx w/rituxan/bendamustine when she had an active lymph node, recently started on ibrutinib 7d ago who presented with urinary symptoms and found to have a UTI and hyperleukocytosis and transferred to [facility] for management with interval improvement on cipro IV. (1) UTI -Had CT abdomen pelvis @ [facility] -Cipro IV given all the allergies. Symptoms already much improved -IV fluids for a few more hours until there is evidence of good PO -Follow up blood culture, urine culture (2) Hyperleukocytosis: 2/2 acute infection on chronic CLL -No concern for leukostasis at this time, with no symptoms and typically occurs at WBC>400 in CLL -Continue to monitor her vital signs, especially dyspnea and hypoxia, as well as neurological examination -Repeat CBC with differential -Discussed holding of her ibrutinib with Dr. Tovar (covering heme/onc) and he recommended holding it for duration of UTI treatment, and was not particularly concerned about her level of hyperleukocytosis (3) CLL with recently worsening leukocytosis, currently on ibrutinib -Hold ibrutinib for now while treating UTI and the patient apprehensive about restarting it as she had been warned about predisposition to hematuria and UTI -Will defer treatment decision to heme/onc, currently inbetween hematologists --> left and will be following with Dr. Alexander (4) Hypertension: chronic -Continue home tus: Chronic cardioprotective medication DVT ppx: heparin Q12H VS,Fishbone, I+O VS, Fishbone, I+O Laboratory Tests 07/19/19 05:24 Vital Signs Date Time Temp Pulse Resp B/P (MAP) Pulse Ox O2 Delivery O2 Flow Rate FiO2 07/19/19 08:47 80 138/66 07/19/19 04:15 98.7 18 96 Room Air I&O- Last 24 Hours up to 6 AM0 07/19/19 06:00 Intake Total 300 ml Output Total 300 ml Balance 0 ml RENAY MCCALLUM MD Jul 19, 2019 11:53
[2019-07-19 12:00] VITALS: BP 111/59
[2019-07-19 16:00] VITALS: BP_SYST 121; BP_SYST 125; BP_DIAS 58; BP_DIAS 82
[2019-07-19] MEDS ORDERED: POLYVINYL ALCOHOL OPHTH SOLN 15 ML(LIQUITEARS) OU PRN (16:45)
[2019-07-19] MEDS ORDERED: ACETAMINOPHEN TAB 650MG DOSE (2X325MG) PO PRN (16:45)
[2019-07-19 17:08] LABS: HEMATOCRIT 37.6 % (36.0-47.0); HEMOGLOBIN 11.4 g/dl (12.0-15.5); MEAN CORPUSCULAR HGB CONC 30.3 g/dl (32.0-36.5); MEAN CORPUSCULAR VOLUME 102.2 fl (80.0-96.0); PLATELET COUNT, AUTOMATED 141 10^3/uL (150-450); RED BLOOD COUNT 3.68 10^6/uL (4.00-5.40)
[2019-07-19 17:19] LABS: WHITE BLOOD COUNT 136.7 10^3/uL (4.0-10.0)
[2019-07-19 20:00] VITALS: BP 121/59
[2019-07-19 20:21] LABS: INR 1.1; PROTHROMBIN TIME 13.9 SECONDS (11.8-14.0)
[2019-07-19 20:30] VITALS: BP 130/62
[2019-07-19 20:42] LABS: ALBUMIN 3.9 GM/DL (3.2-5.2); ALT/SGPT 23 U/L (12-78); BILIRUBIN,TOTAL 0.6 MG/DL (0.2-1.0); BLOOD UREA NITROGEN 15 MG/DL (7-18); C REACTIVE PROTEIN QUANTITATIV 5.76 MG/DL (0.00-0.30); CALCIUM LEVEL 8.8 MG/DL (8.8-10.2); CARBON DIOXIDE LEVEL 18 MEQ/L (21-32); CHLORIDE LEVEL 113 MEQ/L (98-107); CK-MB VALUE MASS < 1.0 NG/ML (<3.6); CPK CREATINE PHOSPHOKINASE 39 U/L (26-192); GLOMERULAR FILTRATION RATE 59.1 (>45); GLUCOSE, FASTING 141 MG/DL (70-100); MAGNESIUM LEVEL 1.7 MG/DL (1.8-2.4); MB/CK RELATIVE INDEX 2.56 (< OR =4); PHOSPHORUS LEVEL 2.7 MG/DL (2.5-4.9); POTASSIUM SERUM 3.4 MEQ/L (3.5-5.1); SODIUM LEVEL 142 MEQ/L (136-145); TOTAL PROTEIN 6.5 GM/DL (6.4-8.2); TROPONIN I < 0.02 NG/ML (< 0.10)
[2019-07-19] MEDS ORDERED: METOPROLOL 5 MG/5 ML VIAL IV STA (20:44)
[2019-07-19] MEDS ORDERED: MAGNESIUM OXIDE 400 MG TAB (MAG-OX) PO ONE (21:00)
[2019-07-19] MEDS ORDERED: POTASSIUM CHLORIDE 10 MEQ SR TABLET PO ONE (21:00)
[2019-07-19] MEDS: APIXABAN 5 MG TAB (ELIQUIS) PO SCH (21:11)
--- NOTE | 2019-07-19 21:19 | REP ---
Clinical: Crackles. Technique: PA and lateral. Comparison: 10/27/2016. Findings: Mediastinum and cardiac silhouette are within normal limits and stable. Chronic interstitial changes are appreciated. Calcified lymph nodes consistent with prior granulomas disease. Mildly prominent coarsened interstitial markings noted and subtle superimposed lower lobe atelectasis and bronchitis cannot be excluded. No pneumothorax. Skeletal structures stable. Impression: Chronic stable changes. Cannot exclude subtle superimposed bronchitis or left infrahilar atelectasis. Electronically Signed by Pascual Hawthorne MD 07/19/2019 09:10 P
[2019-07-20] VITALS: BP 113/65
[2019-07-20 04:00] VITALS: BP 117/59
[2019-07-20 05:07] LABS: BLOOD UREA NITROGEN 14 MG/DL (7-18); CALCIUM LEVEL 8.4 MG/DL (8.8-10.2); CARBON DIOXIDE LEVEL 23 MEQ/L (21-32); CHLORIDE LEVEL 114 MEQ/L (98-107); CREATININE FOR GFR 0.86 MG/DL (0.55-1.30); GLOMERULAR FILTRATION RATE > 60.0 (>45); GLUCOSE, FASTING 104 MG/DL (70-100); MAGNESIUM LEVEL 2.1 MG/DL (1.8-2.4); POTASSIUM SERUM 4.1 MEQ/L (3.5-5.1); SODIUM LEVEL 143 MEQ/L (136-145)
--- NOTE | 2019-07-20 05:10 | IPNPDOC ---
Text Note Date of Service The patient was seen on 07/20/19. NOTE NIGHT NOTE: Pt noted to go from NSR to AFib RVR with HR 140-150s on tele. Chart reviewed and pt examined at bedside. EKG showed nonspecific ST depressions, no ST elevations. Cardiac markers neg. General exam: A&O 3, NAD, resting comfortably, fully interactive HEENT: NCAT, EOMI, anicteric sclera Cardiac: irregular rhythm, tachycardic in 140s , normal S1 & S2, no murmurs Respiratory: good air exchange, no accessory muscle use, crackles right lung base, otherwise clear Abdomen: soft, NT, ND, normoactive bowel sounds Extremity: 2+ radial and dorsalis pedis pulses, no edema or calf tenderness Skin: Duarte, warm, dry, no visible rash Msk: strength 5/5 x4, normal tone Neuro: normal speech, no focal deficits Pt reports she has been told she has episodes of AFib in the past "I get it when I'm stressed or sick." She is on Bblocker, but no anticoag. Pt denies ever being on AC, unclear why. Denies any hx of falls or bleeds. Pt is unsure of prior cardiac w/u, but denies any heart issues in her or her family. No prior documented hx of Afib in her inpatient records. Will treat as new-onset of Afib. Risks, benefits of AC discussed with pt in depth. She is agreeable to start AC. Was given Lopressor and started on Eliquis. Rechecked pt later in night, resting comfortably fast asleep, vitals stable, back to NSR maintaining in 80s. W/u thus far unrevealing for cause of Afib. Echo ordered. May be Paroxysmal Afib given acute illness. VS,Fishbone, I+O VS, Fishbone, I+O Laboratory Tests 07/19/19 05:24 07/19/19 16:49 07/19/19 20:03 Vital Signs Date Time Temp Pulse Resp B/P (MAP) Pulse Ox O2 Delivery O2 Flow Rate FiO2 07/20/19 00:00 97.9 85 20 113/65 (81) 96 07/19/19 20:00 Room Air I&O- Last 24 Hours up to 6 AM 11/30/19 06:00 Intake Total 4260 ml Output Total 3825 ml Balance 435 ml GME ATTESTATION GME ATTESTATION My faculty preceptor for this patient encounter was physically present during the encounter and was fully available. All aspects of the patient interview, examination, medical decision making process, and medical care plan development were reviewed and approved by the faculty preceptor. The faculty preceptor is aware and concurs with the plan as stated in the body of this note and will attest to such by his/her cosignature. DENIS SHETH DO Jul 20, 2019 02:50
[2019-07-20] MEDS ORDERED: CIPR-249 PO (07:48)
[2019-07-20] MEDS ORDERED: ELIQ5TAB PO (07:54)
[2019-07-20 08:00] VITALS: BP 127/66
[2019-07-20] MEDS ORDERED: CIPROFLOXACIN 500 MG TAB PO SCH (08:00)
--- NOTE | 2019-07-20 08:31 | DS.PDOC ---
Discharge Summary General Date of Admission Jul 19, 2019 at 04:15 Date of Discharge 07/20/2019 Attending Physician: RENAY MCCALLUM MD Discharge Summary PROCEDURES PERFORMED DURING STAY: None ADMITTING DIAGNOSES: 1. Urinary sepsis DISCHARGE DIAGNOSES: 1. Urinary tract infection with sepsis 2. CLL 3. Atrial fibrillation with RVR 4. Anemia 5. GERD 6. Hypertension COMPLICATIONS/CHIEF COMPLAINT: Urinary Sepsis. HISTORY OF PRESENT ILLNESS: 68yo W with CLL previously tx w/rituxan/bendamustine remotely when she had an active lymph node, recently started on ibrutinib 6d prior to ED presentation, who presented to [facility] with urinary symptoms and found to have evidence of a UTI with a +UA and hyperleukocytosis and transferred to [facility] for management. HOSPITAL COURSE: On initial evaluation she reported having recently been started on Ibrutinib for CLL after worsening hyperleukocytosis, and then a few days into starting her Ibrutinib she developed diarrhea with nausea, and one day prior to presentation developed suprapubic pain with urinary frequency and vikas hematuria. At [facility] blood showed hyperleukocytosis of 184,000, hemoglobin of 11.7, platelet count 153. Urine analysis showed gross hematuria +leukoestrase. Patient was afebrile with blood pressure of 148/65. CT abdomen and pelvis showed some kidney parenchyma inflammatory changes suspicious for pyelonephritis. I did not see official report as this information was conveyed over the phone report. Of note, per oncology records, she had an axillary lymph node biopsy done in September 2015, and in 09/2016 had 6 cycles of rituximab/bendamustine treatment for the enlarging cervical lymph nodes with a normalization of her lymphocyte count. She was followed expectantly in the interval since with noted gradually worsening hyperleukocytosis and was recently started on ibrutinib. At [facility], her UA had +leukocytes and blood and she was started on IV cipro a nd her ibrutinib was held, with resolution of her suprapubic pressure, dysuria and frequency. She arrived with a WBC of 141 and on repeat was 137, with a low end of normal platelets and mild macrocytic anemia. Her course was c/b a brief episode of asymptomatic Afib with RVR to 140s that responded to metoprolol while she reported a history of paroxysmal Afib when her body is under stress of infection or other metabolic demands in the past without a history of anticoagulation, history of clots or bleeding. She was started on eliquis without complications. She is now being discharged home to complete a 5 day course of empiric ciprofloxacin for presumed UTI ([facility] urine culture was negative) and was started on eliquis 5 BID for Afib and will follow up outpatient with her PCP and hydraulic jack adjuster. DISCHARGE MEDICATIONS: Please see below. ALLERGIES: Please see below. PHYSICAL EXAMINATION ON DISCHARGE: VITAL SIGNS: Please see below. General: Well appearing, sitting up in bed in NAD HEENT: NCAT, PERRLA, EOMI, MMM Neck: Supple, no JVD Pulm: CTAB Cardiac: RRR, no mrg Abd: Normoactive, soft, no suprapubic pain anymore, mild bilateral flank pain, rest of abominal exam was benign. Ext: WWP, no LE edema, 2+ DP pulses Neuro: Moving all extremities, AOx3, cranial nerves 3-12 intact, normal gait LABORATORY DATA: Please see below. IMAGIN. CT A/P at the outside hospital, for which the verbal signout reported kidney parenchyma inflammatory changes suspicious for pyelonephritis. 2. CXR: Chronic stable changes. Cannot exclude subtle superimposed bronchitis or left infrahilar atelectasis. PROGNOSIS: Good ACTIVITY: As tolerated DIET: Regular DISCHARGE PLAN: Home with new eliquis for A fib, and completing cipro course for UTI, with hematology and PCP follow up. DISPOSITION: Home DISCHARGE INSTRUCTIONS: Please complete the cipro course and continue the twice daily eliquis, to discuss this addition with your PCP and hydraulic jack adjuster ITEMS TO FOLLOWUP ON ON OUTPATIENT: 1. CLL - with hematuria and UTI shortly after starting ibrutinib, so ibrutinib was held at this time 2. Paroxysmal Afib - started on eliquis within the hospital 3. Resolution of urinary symptoms DISCHARGE CONDITION: Good TIME SPENT ON DISCHARGE: 43 minutes. Vital Signs/I&Os Vital Signs Date Time Temp Pulse Resp B/P (MAP) Pulse Ox O2 Delivery O2 Flow Rate FiO2 07/20/19 04:00 96.9 68 20 117/59 (78) 97 Room Air I&O- Last 24 Hours up to 6 AM 07/20/19 06:00 Intake Total 4540 ml Output Total 4225 ml Balance 315 ml Laboratory Data Labs 24H Laboratory Tests 2 07/19/19 16:49: Nucleated Red Blood Cells % (auto) 0.0 07/19/19 20:03: Prothrombin Time 13.9, Prothromb Time International Ratio 1.10, Anion Gap 11, Glomerular Filtration Rate 59.1, Calcium Level 8.8, Phosphorus Level 2.7, Magnesium Level 1.7L, Total Bilirubin 0.6, Aspartate Amino Transf (AST/SGOT) 12, Alanine Aminotransferase (ALT/SGPT) 23, Alkaline Phosphatase 67, Total Creatine Kinase 39, Creatine Kinase MB < 1.0, Creatine Kinase MB Relative Index 2.56, Troponin I < 0.02, C-Reactive Protein, Quantitative 5.76H, Total Protein 6.5, Albumin 3.9, Albumin/Globulin Ratio 1.50, Thyroid Stimulating Hormone (TSH) 3.140 07/20/19 04:13: Anion Gap 6L, Glomerular Filtration Rate > 60.0, Calcium Level 8.4L, Magnesium Level 2.1 CBC/BMP Laboratory Tests 07/19/19 16:49 07/19/19 20:03 07/20/19 04:13 Microbiology Microbiology 07/19/19 Urine Culture - Final, Complete 07/19/19 Blood Culture - Preliminary, Resulted No growth after 24 hours . All specim... Discharge Medications Scheduled Apixaban (Eliquis) 5 Mg Tablet, 5 MG PO BID Ascorbic Acid (Vitamin C) 250 Mg Tab, 250 MG PO BID, (Reported) Atenolol (Atenolol) 50 Mg Tab, 50 MG PO DAILY, (Reported) Biotin (Biotin) 10 Mg Tablet, 10 MG PO DAILY, (Reported) Cholecalciferol (Vitamin D3) (Vitamin D3) 5,000 Unit Capsule, 5,000 UNIT PO DAILY, (Reported) Ciprofloxacin HCl (Cipro) 500 Mg Tablet, 500 MG PO BID@18 Clobetasol Propionate (Clobetasol Propionate) 0.05% 50GM Foam, 1 APLCT TOP BID for RASH, (Reported) APPLY TO SCALP AND BACK OF NECK Diphenhydramine HCl (Benadryl) 25 Mg Cap, 50 MG PO QHS, (Reported) ORDERED TID, PRN. PATIENT TAKES SCHEDULED MEDICATION AT BEDTIME Evening [place] Oil (Evening [place] Oil) 500 Mg Cap, 500 MG PO DAILY, (Reported) Hydrocortisone (Hydrocortisone) 2.5 % Lot, 1 DOSE TOP BID, (Reported) Ibrutinib (Imbruvica) 140 Mg Capsule, 3 CAP PO DAILY, (Reported) Methionine (l-Methionine) 100 Gm Powder, 100 GM PO DAILY, (Reported) SPRINKLE ON FOOD Milk Thistle Seed Extract (Milk Thistle Extract) 87.5 Mg Cap, 87.5 MG PO DAILY, (Reported) Multivitamins (Thera M Plus Tablet) 1 Tab Tab, 1 TAB PO DAILY, (Reported) Red Yeast Rice (Red Yeast Rice) 600 Mg Capsule, 600 MG PO DAILY, (Reported) Selenomethionine (Selenium) 200 Mcg Tablet, 200 MCG PO DAILY, (Reported) Turmeric (Turmeric) 1 Gm Powder, 1 GM PO DAILY, (Reported) Miscellaneous Medications B1/B2/B3/B5/B6/Fa/B12/C (Ribozel 159 mg Capsule) 1 Each Capsule, 1 CAP PO, (Reported) Calcium Carbonate (Calcium) 600 Mg Tablet, 600 MG PO, (Reported) Allergies Coded Allergies: allopurinol (Verified Allergy, Severe, rash, 11/22/18) ceftriaxone (Verified Allergy, Severe, sob, 11/22/18) Cephalosporins (Verified Allergy, Intermediate, rash, 11/22/18) Penicillins (Verified Allergy, Intermediate, rash, 11/22/18) codeine (Verified Allergy, Intermediate, rash, 11/22/18) erythromycin base (Verified Allergy, Intermediate, rash, 11/22/18) RENAY MCCALLUM MD Jul 20, 2019 08:31
[2019-07-20 09:27] VITALS: BP 127/66
[2019-07-20] MEDS: APIXABAN 5 MG TAB (ELIQUIS) PO SCH (09:27)
[2019-07-20] MEDS: ATENOLOL 50 MG TAB PO SCH (09:27)
--- NOTE | 2019-07-20 13:48 | ECHO ---
DATE OF SERVICE: 07/20/2019 REFERRING PROCEDURE: Dr. Symone Raza REASON FOR STUDY: Abnormal EKG. 2D MEASUREMENTS: IVS: 0.9 cm LV: 4.3 cm LVPW: 0.9 cm LA: 3.1 cm Aorta: 3.1 cm RV: 2.9 cm DOPPLER MEASUREMENTS: Peak velocity across the aortic valve: 1.3 m/s Peak velocity across the LVOT: 0.89 m/s Mitral E: 0.75 Mitral A: 0.59 with a ratio of 1.3 Maximum tricuspid valve velocity: 2.04 m/s 2D COMMENTS: 1. Normal left ventricular size, wall thickness, and normal global left ventricular systolic function. The estimated left ventricular systolic ejection fraction is 60-65%. 2. Normal left atrium. Normal right atrium and left ventricle. 3. The atrial septum appeared to be normal without evidence of defect or shunt. 4. Normal aortic root. 5. No pericardial effusion seen. 6. Minimally calcified aortic valve with normal leaflet excursion. Normal mitral valve, tricuspid valve, and pulmonic valve. The proximal pulmonary artery branches also appear to be normal. 7. The inferior vena cava was not well visualized. Doppler it detects trace mitral regurgitation and trace tricuspid regurgitation. Calculated pulmonary artery systolic pressure was normal. Assessment of the left ventricular diastolic function also appeared to be normal. IMPRESSION: 1. Normal global left ventricular systolic and diastolic function. 2. Aortic valve sclerosis without stenosis or aortic regurgitation. 3. Trace mitral regurgitation. 4. Trace tricuspid regurgitation with a normal calculated pulmonary artery systolic pressure.
--- NOTE | 2019-07-20 22:07 | ECGEPIP ---
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
== END 2019-07-20 11:05 | disposition home or self-care (01) | DRG 872 ==
LOC: M PCU 04:15
PROVIDERS: ADMIT Internal Medicine; ATTEND Internal Medicine
DX: A41.9 Sepsis, unspecified organism (principal); N39.0 Urinary tract infection, site not specified; C91.10 Chronic lymphocytic leukemia of B-cell type not having achieved remission; K21.9 Gastro-esophageal reflux disease without esophagitis; I10 Essential (primary) hypertension; D53.9 Nutritional anemia, unspecified; I48.0 Paroxysmal atrial fibrillation; Z79.899 Other long term (current) drug therapy; Z88.5 Allergy status to narcotic agent; Z88.0 Allergy status to penicillin; Z88.8 Allergy status to other drugs, medicaments and biological substances

== ENCOUNTER → 2022-03-22 | Outpatient (REF) | payer MEDICARE, OTHER ==
[~2022-03-22] MED LIST changes: +CIPR-249 PO; +CLOB0.0526 TOP; +DIGO0.123; +ELIQ5TAB PO; +FEBU40TA4 PO; +FOLTTAB9 PO; +HYDR25OIN TOP; +LEUK2TAB8 PO; +OMEP40CA4; -OMEP40CA97; +ONDA-84; -ONDA8TAB7; +ONDA8TAB8 PO; +PRED50TA PO; +REST0.05; +ROSU10TA6; +VALT500T PO; +VITA100093 PO; -VITA1TAB23 PO; +VITA250T26 PO; +VITA500079 PO; +[UNRECOGNIZED DRUG - CODE] PO
== END ==
LOC: M SFHCDERM 14:16
PROVIDERS: ATTEND Nurse Practitioner Family
DX: L85.9 Epidermal thickening, unspecified (principal)

== ENCOUNTER → 2022-03-24 | Outpatient (CLI) | payer MEDICARE, OTHER | LOC: M LABSMTC 11:36 | PROVIDERS: ATTEND Anesthesiology | DX: Z01.818 Encounter for other preprocedural examination (principal); Z11.52 Encounter for screening for COVID-19 ==

== ENCOUNTER 2022-05-09 17:00 | Inpatient (IN) | payer MEDICARE, OTHER ==
[~2022-05-09] VITALS: Ht 165.1 cm; Wt 75.9 kg
[2022-05-09] VITALS (7 sets, daily range): BP systolic 119–146; BP diastolic 54–72
[~2022-05-09 17:00] MED LIST changes: -DIGO0.123; +DIGO0.123 PO; +PRED20TA PO; -REST0.05; +REST0.05 OU; -ROSU10TA6; +ROSU10TA6 PO
[2022-05-09 19:03] LABS: ALBUMIN 3.5 GM/DL (3.2-5.2); ALT/SGPT 20 U/L (12-78); BILIRUBIN,TOTAL 0.4 MG/DL (0.2-1.0); BLOOD UREA NITROGEN 22 MG/DL (7-18); CARBON DIOXIDE LEVEL 24 MEQ/L (21-32); CHLORIDE LEVEL 104 MEQ/L (98-107); CREATININE FOR GFR 0.91 MG/DL (0.55-1.30); GLOMERULAR FILTRATION RATE > 60.0 (>45); GLUCOSE, FASTING 129 MG/DL (70-100); POTASSIUM SERUM 3.7 MEQ/L (3.5-5.1); SODIUM LEVEL 136 MEQ/L (136-145); TOTAL PROTEIN 6.5 GM/DL (6.4-8.2)
[2022-05-09] MEDS ORDERED: FAMO20TA PO (19:05)
[2022-05-09] MEDS ORDERED: HOME MED LIST COMPLETE! XX SCH (19:05)
[2022-05-09] MEDS ORDERED: TURM500T PO (19:05)
[2022-05-09 19:37] LABS: BILIRUBIN,DIRECT 0.2 MG/DL (0.0-0.2); DIGOXIN LEVEL 1.2 NG/ML (0.5-2.0); LDH LACTATE DEHYDROGENASE 331 U/L (84-246)
[2022-05-09 19:46] LABS: HEMATOCRIT 32.8 % (36.0-47.0); HEMOGLOBIN 10.8 g/dl (12.0-15.5); MEAN CORPUSCULAR HEMOGLOBIN 35.3 pg (27.0-33.0); MEAN CORPUSCULAR HGB CONC 32.9 g/dl (32.0-36.5); MEAN CORPUSCULAR VOLUME 107.2 fl (80.0-96.0); RED BLOOD COUNT 3.06 10^6/uL (4.00-5.40)
[2022-05-09 19:58] LABS: INR 0.88; PARTIAL THROMBOPLASTIN TIME 20.7 SECONDS (25.9-37.0); PROTHROMBIN TIME 12.3 SECONDS (12.7-14.5)
[2022-05-09 19:59] LABS: PLATELET COUNT, AUTOMATED 1 10^3/uL (150-450); WHITE BLOOD COUNT 74.3 10^3/uL (4.0-10.0)
[2022-05-09] MEDS ORDERED: IMMUNE GLOBULIN 10% 10 GM in IV 1 EA IV ONE (20:00)
[2022-05-09] MEDS: ROSUVASTATIN 10 MG TAB (CRESTOR) PO SCH (20:39)
[2022-05-09 20:42] LABS: LYMPHOCYTES 91 % (16-44); NEUTROPHILS 8 % (28-66)
[2022-05-09 20:43] LABS: PLATELET ESTIMATE MARKED DECREASE (NORMAL)
[2022-05-09 20:44] LABS: SMUDGE CELLS 1+
[2022-05-09] MEDS ORDERED: IMMUNE GLOBULIN 10% 40 GM in IV 1 EA IV ONE (21:00)
[2022-05-09] MEDS: CEPACOL LOZENGE PO PRN (23:50)
[2022-05-09] MEDS: guaiFENesin ER 600 MG TAB PO SCH (23:50)
[2022-05-10] VITALS (16 sets, daily range): BP systolic 116–147; BP diastolic 55–75
[2022-05-10 00:32] LABS: HEMATOCRIT 32.3 % (36.0-47.0); HEMOGLOBIN 10.6 g/dl (12.0-15.5); MEAN CORPUSCULAR HEMOGLOBIN 35.8 pg (27.0-33.0); MEAN CORPUSCULAR HGB CONC 32.8 g/dl (32.0-36.5); MEAN CORPUSCULAR VOLUME 109.1 fl (80.0-96.0); RED BLOOD COUNT 2.96 10^6/uL (4.00-5.40)
[2022-05-10 00:33] LABS: WHITE BLOOD COUNT 63.7 10^3/uL (4.0-10.0)
[2022-05-10 00:34] LABS: PLATELET COUNT, AUTOMATED 3 10^3/uL (150-450)
[2022-05-10] MEDS: CEPACOL LOZENGE PO PRN ×3 (04:18→15:37)
[2022-05-10] MEDS: DIGOXIN 0.125 MG TAB PO SCH (08:36)
[2022-05-10] MEDS: atenoloL 50 MG TAB PO SCH (08:37)
[2022-05-10] MEDS: guaiFENesin ER 600 MG TAB PO SCH ×2 (08:37→20:01)
[2022-05-10] MEDS ORDERED: methylPREDNISolone 40MG 1ML VIAL IV SCH (09:00)
[2022-05-10 09:02] LABS: BASO # 0.1 10^3/uL (0.0-0.2); BASO % 0.2 % (0.0-1.0); HEMATOCRIT 30.5 % (36.0-47.0); LYMPH # 49.1 10^3/uL (1.5-5.0); LYMPH % 83.7 % (24.0-44.0); MEAN CORPUSCULAR HEMOGLOBIN 34.8 pg (27.0-33.0); MEAN CORPUSCULAR HGB CONC 32.8 g/dl (32.0-36.5); MEAN CORPUSCULAR VOLUME 106.3 fl (80.0-96.0); MONO % 7.2 % (2.0-8.0); NEUTROPHILS % 8.6 % (36.0-66.0); RED BLOOD COUNT 2.87 10^6/uL (4.00-5.40)
[2022-05-10 09:11] LABS: PLATELET COUNT, AUTOMATED 9 10^3/uL (150-450); WHITE BLOOD COUNT 58.6 10^3/uL (4.0-10.0)
[2022-05-10 09:12] LABS: MONO # 4.2 10^3/uL (0.0-0.8)
[2022-05-10 09:42] LABS: ALBUMIN 2.9 GM/DL (3.2-5.2); ALT/SGPT 15 U/L (12-78); BILIRUBIN,TOTAL 0.4 MG/DL (0.2-1.0); BLOOD UREA NITROGEN 20 MG/DL (7-18); CALCIUM LEVEL 8.6 MG/DL (8.8-10.2); CARBON DIOXIDE LEVEL 25 MEQ/L (21-32); CHLORIDE LEVEL 99 MEQ/L (98-107); CREATININE FOR GFR 0.83 MG/DL (0.55-1.30); GLOMERULAR FILTRATION RATE > 60.0 (>45); GLUCOSE, FASTING 107 MG/DL (70-100); POTASSIUM SERUM 2.9 MEQ/L (3.5-5.1); SODIUM LEVEL 130 MEQ/L (136-145); TOTAL PROTEIN 6.9 GM/DL (6.4-8.2)
[2022-05-10] MEDS ORDERED: POTASSIUM CHLORIDE 10MEQ SR TABLET PO ONE ×4 (10:10→15:00)
[2022-05-10] MEDS: valACYclovir HCL 500 MG TAB PO SCH (11:40)
[2022-05-10] MEDS: PANTOPRAZOLE 40MG VIAL IV SCH (11:40)
[2022-05-10] MEDS: MULTIVITAMINS/MINERALS THERAP 1 TAB PO SCH (11:40)
[2022-05-10] MEDS ORDERED: ACETAMINOPHEN TAB 650MG DOSE (2X325MG) PO PRN (13:25)
[2022-05-10] MEDS ORDERED: LevoFLOXacin IV 500 MG in IV 1 EA IV SCH (13:25)
[2022-05-10 13:52] LABS: ALBUMIN 2.8 GM/DL (3.2-5.2); ALT/SGPT 16 U/L (12-78); BILIRUBIN,TOTAL 0.6 MG/DL (0.2-1.0); BLOOD UREA NITROGEN 18 MG/DL (7-18); CALCIUM LEVEL 8.3 MG/DL (8.8-10.2); CARBON DIOXIDE LEVEL 25 MEQ/L (21-32); CHLORIDE LEVEL 100 MEQ/L (98-107); CREATININE FOR GFR 0.83 MG/DL (0.55-1.30); GLOMERULAR FILTRATION RATE > 60.0 (>45); GLUCOSE, FASTING 122 MG/DL (70-100); POTASSIUM SERUM 3.4 MEQ/L (3.5-5.1); SODIUM LEVEL 132 MEQ/L (136-145); TOTAL PROTEIN 6.5 GM/DL (6.4-8.2)
[2022-05-10 14:32] LABS: FERRITIN 223 NG/ML (8-252); IRON (FE) 16 UG/DL (50-170); TOTAL IRON BINDING CAPACITY 229 UG/DL (250-450)
[2022-05-10 15:08] LABS: VITAMIN B12 LEVEL > 2000 PG/ML (247-911)
[2022-05-10] MEDS: LevoFLOXacin IV 750 MG in IV 1 EA IV SCH (15:38)
[2022-05-10] MEDS: methylPREDNISolone 500 MG, VIAL MATE ADAPTER 1 EACH in NS 250 ML IV SCH (18:20)
[2022-05-10] MEDS: ROSUVASTATIN 10 MG TAB (CRESTOR) PO SCH (20:01)
[2022-05-11] VITALS (14 sets, daily range): BP systolic 100–132; BP diastolic 56–71
[2022-05-11] MEDS: methylPREDNISolone 500 MG, VIAL MATE ADAPTER 1 EACH in NS 250 ML IV SCH ×2 (01:38→12:26)
[2022-05-11 04:15] LABS: HEMATOCRIT 32.4 % (36.0-47.0); HEMOGLOBIN 10.6 g/dl (12.0-15.5); MEAN CORPUSCULAR HEMOGLOBIN 35.6 pg (27.0-33.0); MEAN CORPUSCULAR HGB CONC 32.7 g/dl (32.0-36.5); MEAN CORPUSCULAR VOLUME 108.7 fl (80.0-96.0); RED BLOOD COUNT 2.98 10^6/uL (4.00-5.40)
[2022-05-11 04:17] LABS: PLATELET COUNT, AUTOMATED 2 10^3/uL (150-450); WHITE BLOOD COUNT 62.7 10^3/uL (4.0-10.0)
[2022-05-11 04:48] LABS: ALBUMIN 2.8 GM/DL (3.2-5.2); ALT/SGPT 17 U/L (12-78); BILIRUBIN,TOTAL 0.5 MG/DL (0.2-1.0); BLOOD UREA NITROGEN 17 MG/DL (7-18); CALCIUM LEVEL 8.7 MG/DL (8.8-10.2); CARBON DIOXIDE LEVEL 22 MEQ/L (21-32); CHLORIDE LEVEL 104 MEQ/L (98-107); CREATININE FOR GFR 0.77 MG/DL (0.55-1.30); GLOMERULAR FILTRATION RATE > 60.0 (>45); GLUCOSE, FASTING 176 MG/DL (70-100); POTASSIUM SERUM 4.4 MEQ/L (3.5-5.1); SODIUM LEVEL 135 MEQ/L (136-145); TOTAL PROTEIN 6.6 GM/DL (6.4-8.2)
[2022-05-11] MEDS ORDERED: MIRALAX *UNIT DOSE* 17GM PACKET PO PRN (08:00)
[2022-05-11 08:18] LABS: HEMATOCRIT 32.2 % (36.0-47.0); HEMOGLOBIN 10.6 g/dl (12.0-15.5); MEAN CORPUSCULAR HEMOGLOBIN 35.8 pg (27.0-33.0); MEAN CORPUSCULAR HGB CONC 32.9 g/dl (32.0-36.5); MEAN CORPUSCULAR VOLUME 108.8 fl (80.0-96.0); RED BLOOD COUNT 2.96 10^6/uL (4.00-5.40)
[2022-05-11 08:19] LABS: PLATELET COUNT, AUTOMATED 11 10^3/uL (150-450)
[2022-05-11 08:21] LABS: WHITE BLOOD COUNT 67.3 10^3/uL (4.0-10.0)
[2022-05-11] MEDS: DOCUSATE SODIUM 100MG CAPSULE PO SCH ×2 (09:59→21:22)
[2022-05-11] MEDS: guaiFENesin ER 600 MG TAB PO SCH ×2 (09:59→21:23)
[2022-05-11] MEDS: PANTOPRAZOLE 40MG VIAL IV SCH (09:59)
[2022-05-11] MEDS: MULTIVITAMINS/MINERALS THERAP 1 TAB PO SCH (09:59)
[2022-05-11] MEDS: FERROUS SULFATE 325MG TAB PO SCH ×2 (10:00→21:23)
[2022-05-11] MEDS: atenoloL 50 MG TAB PO SCH (10:00)
[2022-05-11] MEDS: DIGOXIN 0.125 MG TAB PO SCH (10:00)
[2022-05-11] MEDS: valACYclovir HCL 500 MG TAB PO SCH (10:01)
[2022-05-11] MEDS: CEPACOL LOZENGE PO PRN ×2 (10:11→12:26)
[2022-05-11] MEDS: LevoFLOXacin IV 750 MG in IV 1 EA IV SCH (14:06)
[2022-05-11 19:48] LABS: MEAN CORPUSCULAR HEMOGLOBIN 35.4 pg (27.0-33.0); MEAN CORPUSCULAR HGB CONC 33.3 g/dl (32.0-36.5); MEAN CORPUSCULAR VOLUME 106.1 fl (80.0-96.0); RED BLOOD COUNT 3.11 10^6/uL (4.00-5.40)
[2022-05-11 19:51] LABS: PLATELET COUNT, AUTOMATED 1 10^3/uL (150-450); WHITE BLOOD COUNT 77.6 10^3/uL (4.0-10.0)
[2022-05-11] MEDS: ROSUVASTATIN 10 MG TAB (CRESTOR) PO SCH (21:23)
[2022-05-11] MEDS: SENNA 8.6 MG TAB (SENOKOT) PO SCH (21:23)
[2022-05-12] VITALS (22 sets, daily range): BP systolic 100–142; BP diastolic 56–74
[2022-05-12] MEDS: methylPREDNISolone 500 MG, VIAL MATE ADAPTER 1 EACH in NS 250 ML IV SCH ×2 (00:22→13:00)
[2022-05-12 06:08] LABS: HEMATOCRIT 28.9 % (36.0-47.0); HEMOGLOBIN 9.6 g/dl (12.0-15.5); MEAN CORPUSCULAR HEMOGLOBIN 35.8 pg (27.0-33.0); MEAN CORPUSCULAR HGB CONC 33.2 g/dl (32.0-36.5); MEAN CORPUSCULAR VOLUME 107.8 fl (80.0-96.0); RED BLOOD COUNT 2.68 10^6/uL (4.00-5.40)
[2022-05-12 06:12] LABS: PLATELET COUNT, AUTOMATED 1 10^3/uL (150-450); WHITE BLOOD COUNT 61.5 10^3/uL (4.0-10.0)
[2022-05-12 06:41] LABS: ALBUMIN 2.7 GM/DL (3.2-5.2); ALT/SGPT 15 U/L (12-78); BILIRUBIN,TOTAL 0.4 MG/DL (0.2-1.0); BLOOD UREA NITROGEN 23 MG/DL (7-18); CALCIUM LEVEL 8.7 MG/DL (8.8-10.2); CARBON DIOXIDE LEVEL 23 MEQ/L (21-32); CHLORIDE LEVEL 106 MEQ/L (98-107); CREATININE FOR GFR 0.77 MG/DL (0.55-1.30); GLOMERULAR FILTRATION RATE > 60.0 (>45); GLUCOSE, FASTING 187 MG/DL (70-100); POTASSIUM SERUM 4.2 MEQ/L (3.5-5.1); SODIUM LEVEL 138 MEQ/L (136-145); TOTAL PROTEIN 6.3 GM/DL (6.4-8.2)
[2022-05-12 08:47] LABS: PLTBLUE- EDTA FREE CALC 1 K/mm3 (172-450)
[2022-05-12 08:48] LABS: PLTBLUE- EDTA FREE MACHINE 1 10^3/uL (172-450)
[2022-05-12] MEDS: DOCUSATE SODIUM 100MG CAPSULE PO SCH ×2 (09:00→20:24)
[2022-05-12] MEDS: FERROUS SULFATE 325MG TAB PO SCH ×2 (09:01→20:24)
[2022-05-12] MEDS: MULTIVITAMINS/MINERALS THERAP 1 TAB PO SCH (09:02)
[2022-05-12] MEDS: valACYclovir HCL 500 MG TAB PO SCH (09:03)
[2022-05-12] MEDS: guaiFENesin ER 600 MG TAB PO SCH ×2 (09:03→20:24)
[2022-05-12] MEDS: PANTOPRAZOLE 40MG VIAL IV SCH (09:03)
[2022-05-12] MEDS: DIGOXIN 0.125 MG TAB PO SCH (09:03)
[2022-05-12] MEDS: atenoloL 50 MG TAB PO SCH (09:37)
[2022-05-12] MEDS ORDERED: IMMUNE GLOBULIN IV ONE (11:00)
[2022-05-12 14:08] LABS: FOLATE 14.3 ng/mL (>3.0)
[2022-05-12 14:54] LABS: HEMATOCRIT 29.8 % (36.0-47.0); HEMOGLOBIN 9.5 g/dl (12.0-15.5); MEAN CORPUSCULAR HEMOGLOBIN 35.2 pg (27.0-33.0); MEAN CORPUSCULAR HGB CONC 31.9 g/dl (32.0-36.5); MEAN CORPUSCULAR VOLUME 110.4 fl (80.0-96.0); WHITE BLOOD COUNT 70.1 10^3/uL (4.0-10.0)
[2022-05-12 14:55] LABS: PLATELET COUNT, AUTOMATED 8 10^3/uL (150-450)
[2022-05-12] MEDS ORDERED: LIDOCAINE 1% MDV 20ML VIAL As Ordered ONE (15:07)
[2022-05-12 15:18] LABS: ATYPICAL LYMPH 1 % (0-5); LYMPHOCYTES 86 % (16-44); NEUTROPHILS 12 % (28-66)
[2022-05-12 15:19] LABS: PLATELET ESTIMATE MARKED DECREASE (NORMAL); SMUDGE CELLS 1+
[2022-05-12] MEDS: CEPACOL LOZENGE PO PRN ×2 (16:16→21:50)
[2022-05-12 19:40] LABS: HEMATOCRIT 29.7 % (36.0-47.0); HEMOGLOBIN 9.6 g/dl (12.0-15.5); MEAN CORPUSCULAR HEMOGLOBIN 34.9 pg (27.0-33.0); MEAN CORPUSCULAR HGB CONC 32.3 g/dl (32.0-36.5); RED BLOOD COUNT 2.75 10^6/uL (4.00-5.40)
[2022-05-12 19:42] LABS: PLATELET COUNT, AUTOMATED 3 10^3/uL (150-450); WHITE BLOOD COUNT 69.9 10^3/uL (4.0-10.0)
[2022-05-12] MEDS: ROSUVASTATIN 10 MG TAB (CRESTOR) PO SCH (20:24)
[2022-05-12] MEDS: SENNA 8.6 MG TAB (SENOKOT) PO SCH (20:24)
[2022-05-13] VITALS (7 sets, daily range): BP systolic 105–140; BP diastolic 55–79
[2022-05-13] MEDS: methylPREDNISolone 500 MG, VIAL MATE ADAPTER 1 EACH in NS 250 ML IV SCH (00:30)
[2022-05-13 07:05] LABS: HEMATOCRIT 27.7 % (36.0-47.0); HEMOGLOBIN 8.9 g/dl (12.0-15.5); MEAN CORPUSCULAR HEMOGLOBIN 35.2 pg (27.0-33.0); MEAN CORPUSCULAR HGB CONC 32.1 g/dl (32.0-36.5); MEAN CORPUSCULAR VOLUME 109.5 fl (80.0-96.0); RED BLOOD COUNT 2.53 10^6/uL (4.00-5.40)
[2022-05-13 07:24] LABS: PLATELET COUNT, AUTOMATED 8 10^3/uL (150-450); WHITE BLOOD COUNT 48.9 10^3/uL (4.0-10.0)
[2022-05-13 07:32] LABS: ALBUMIN 2.6 GM/DL (3.2-5.2); ALT/SGPT 13 U/L (12-78); BILIRUBIN,TOTAL 0.4 MG/DL (0.2-1.0); BLOOD UREA NITROGEN 31 MG/DL (7-18); CALCIUM LEVEL 8.5 MG/DL (8.8-10.2); CARBON DIOXIDE LEVEL 25 MEQ/L (21-32); CHLORIDE LEVEL 105 MEQ/L (98-107); CREATININE FOR GFR 0.88 MG/DL (0.55-1.30); GLOMERULAR FILTRATION RATE > 60.0 (>45); GLUCOSE, FASTING 164 MG/DL (70-100); POTASSIUM SERUM 3.9 MEQ/L (3.5-5.1); SODIUM LEVEL 137 MEQ/L (136-145); TOTAL PROTEIN 7.7 GM/DL (6.4-8.2)
[2022-05-13] MEDS: MULTIVITAMINS/MINERALS THERAP 1 TAB PO SCH (08:13)
[2022-05-13] MEDS: FERROUS SULFATE 325MG TAB PO SCH ×2 (08:13→20:13)
[2022-05-13] MEDS: DOCUSATE SODIUM 100MG CAPSULE PO SCH ×2 (08:13→20:10)
[2022-05-13] MEDS: DIGOXIN 0.125 MG TAB PO SCH (08:14)
[2022-05-13] MEDS: atenoloL 50 MG TAB PO SCH (08:14)
[2022-05-13] MEDS: valACYclovir HCL 500 MG TAB PO SCH (08:14)
[2022-05-13] MEDS: guaiFENesin ER 600 MG TAB PO SCH ×2 (08:14→20:13)
[2022-05-13] MEDS: PANTOPRAZOLE 40MG VIAL IV SCH (08:15)
[2022-05-13 19:12] LABS: HEMATOCRIT 30.1 % (36.0-47.0); HEMOGLOBIN 9.6 g/dl (12.0-15.5); MEAN CORPUSCULAR HGB CONC 31.9 g/dl (32.0-36.5); MEAN CORPUSCULAR VOLUME 109.9 fl (80.0-96.0); RED BLOOD COUNT 2.74 10^6/uL (4.00-5.40)
[2022-05-13 19:18] LABS: PLATELET COUNT, AUTOMATED 9 10^3/uL (150-450); WHITE BLOOD COUNT 62.8 10^3/uL (4.0-10.0)
[2022-05-13] MEDS: CEPACOL LOZENGE PO PRN (20:11)
[2022-05-13] MEDS: SENNA 8.6 MG TAB (SENOKOT) PO SCH (20:12)
[2022-05-13] MEDS: ROSUVASTATIN 10 MG TAB (CRESTOR) PO SCH (20:12)
[2022-05-14] VITALS (8 sets, daily range): BP systolic 120–140; BP diastolic 59–70
[2022-05-14] MEDS: DOCUSATE SODIUM 100MG CAPSULE PO SCH ×2 (08:22→20:45)
[2022-05-14] MEDS: FERROUS SULFATE 325MG TAB PO SCH ×2 (08:23→20:45)
[2022-05-14] MEDS: DIGOXIN 0.125 MG TAB PO SCH (08:23)
[2022-05-14] MEDS: MULTIVITAMINS/MINERALS THERAP 1 TAB PO SCH (08:23)
[2022-05-14] MEDS: valACYclovir HCL 500 MG TAB PO SCH (08:23)
[2022-05-14] MEDS: atenoloL 50 MG TAB PO SCH (08:23)
[2022-05-14] MEDS: guaiFENesin ER 600 MG TAB PO SCH ×2 (08:23→20:45)
[2022-05-14] MEDS: PANTOPRAZOLE 40MG VIAL IV SCH (08:23)
[2022-05-14 09:06] LABS: ALBUMIN 2.8 GM/DL (3.2-5.2); ALT/SGPT 17 U/L (12-78); BILIRUBIN,TOTAL 0.3 MG/DL (0.2-1.0); BLOOD UREA NITROGEN 23 MG/DL (7-18); CALCIUM LEVEL 8.9 MG/DL (8.8-10.2); CARBON DIOXIDE LEVEL 24 MEQ/L (21-32); CHLORIDE LEVEL 105 MEQ/L (98-107); CREATININE FOR GFR 0.85 MG/DL (0.55-1.30); GLOMERULAR FILTRATION RATE > 60.0 (>45); GLUCOSE, FASTING 85 MG/DL (70-100); POTASSIUM SERUM 3.5 MEQ/L (3.5-5.1); SODIUM LEVEL 135 MEQ/L (136-145); TOTAL PROTEIN 7.8 GM/DL (6.4-8.2)
[2022-05-14] MEDS: MIRALAX *UNIT DOSE* 17GM PACKET PO SCH (13:32)
[2022-05-14 19:00] LABS: HEMATOCRIT 28.2 % (36.0-47.0); HEMOGLOBIN 9.1 g/dl (12.0-15.5); MEAN CORPUSCULAR HEMOGLOBIN 35.4 pg (27.0-33.0); MEAN CORPUSCULAR HGB CONC 32.3 g/dl (32.0-36.5); MEAN CORPUSCULAR VOLUME 109.7 fl (80.0-96.0); RED BLOOD COUNT 2.57 10^6/uL (4.00-5.40)
[2022-05-14 19:04] LABS: PLATELET COUNT, AUTOMATED 7 10^3/uL (150-450); WHITE BLOOD COUNT 52.4 10^3/uL (4.0-10.0)
[2022-05-14] MEDS: ROSUVASTATIN 10 MG TAB (CRESTOR) PO SCH (20:45)
[2022-05-14] MEDS: SENNA 8.6 MG TAB (SENOKOT) PO SCH (20:46)
[2022-05-15] VITALS (7 sets, daily range): BP systolic 111–130; BP diastolic 59–73
[2022-05-15 07:41] LABS: HEMATOCRIT 29.5 % (36.0-47.0); HEMOGLOBIN 9.5 g/dl (12.0-15.5); MEAN CORPUSCULAR HEMOGLOBIN 35.1 pg (27.0-33.0); MEAN CORPUSCULAR HGB CONC 32.2 g/dl (32.0-36.5); MEAN CORPUSCULAR VOLUME 108.9 fl (80.0-96.0); RED BLOOD COUNT 2.71 10^6/uL (4.00-5.40)
[2022-05-15 07:45] LABS: PLATELET COUNT, AUTOMATED 3 10^3/uL (150-450)
[2022-05-15 08:21] LABS: ALBUMIN 2.8 GM/DL (3.2-5.2); ALT/SGPT 15 U/L (12-78); BILIRUBIN,TOTAL 0.4 MG/DL (0.2-1.0); BLOOD UREA NITROGEN 15 MG/DL (7-18); CALCIUM LEVEL 8.5 MG/DL (8.8-10.2); CARBON DIOXIDE LEVEL 26 MEQ/L (21-32); CHLORIDE LEVEL 103 MEQ/L (98-107); CREATININE FOR GFR 0.77 MG/DL (0.55-1.30); GLOMERULAR FILTRATION RATE > 60.0 (>45); GLUCOSE, FASTING 87 MG/DL (70-100); POTASSIUM SERUM 3.3 MEQ/L (3.5-5.1); SODIUM LEVEL 136 MEQ/L (136-145)
[2022-05-15] MEDS: atenoloL 50 MG TAB PO SCH (08:39)
[2022-05-15] MEDS: guaiFENesin ER 600 MG TAB PO SCH ×2 (08:39→20:13)
[2022-05-15] MEDS: PANTOPRAZOLE 40MG VIAL IV SCH (08:39)
[2022-05-15] MEDS: DOCUSATE SODIUM 100MG CAPSULE PO SCH ×2 (08:39→20:13)
[2022-05-15] MEDS: FERROUS SULFATE 325MG TAB PO SCH ×2 (08:39→20:13)
[2022-05-15] MEDS: valACYclovir HCL 500 MG TAB PO SCH (08:39)
[2022-05-15] MEDS: MIRALAX *UNIT DOSE* 17GM PACKET PO SCH (08:39)
[2022-05-15] MEDS: MULTIVITAMINS/MINERALS THERAP 1 TAB PO SCH (08:39)
[2022-05-15] MEDS: DIGOXIN 0.125 MG TAB PO SCH (08:40)
[2022-05-15] MEDS: predniSONE 20 MG TAB PO SCH (08:40)
[2022-05-15] MEDS: ROSUVASTATIN 10 MG TAB (CRESTOR) PO SCH (20:13)
[2022-05-15] MEDS: SENNA 8.6 MG TAB (SENOKOT) PO SCH (20:13)
[2022-05-15] MEDS: CEPACOL LOZENGE PO PRN (20:22)
[2022-05-16] VITALS (7 sets, daily range): BP systolic 108–156; BP diastolic 65–78
[2022-05-16] MEDS: PANTOPRAZOLE 40MG VIAL IV SCH (08:31)
[2022-05-16] MEDS: DIGOXIN 0.125 MG TAB PO SCH (08:32)
[2022-05-16] MEDS: valACYclovir HCL 500 MG TAB PO SCH (08:32)
[2022-05-16] MEDS: predniSONE 20 MG TAB PO SCH (08:32)
[2022-05-16] MEDS: MULTIVITAMINS/MINERALS THERAP 1 TAB PO SCH (08:32)
[2022-05-16] MEDS: atenoloL 50 MG TAB PO SCH (08:32)
[2022-05-16] MEDS: DOCUSATE SODIUM 100MG CAPSULE PO SCH ×2 (08:32→21:31)
[2022-05-16] MEDS: guaiFENesin ER 600 MG TAB PO SCH ×2 (08:33→21:31)
[2022-05-16] MEDS: FERROUS SULFATE 325MG TAB PO SCH ×2 (08:33→21:33)
[2022-05-16] MEDS: MIRALAX *UNIT DOSE* 17GM PACKET PO SCH ×2 (08:40→09:56)
[2022-05-16 08:45] LABS: HEMATOCRIT 28.2 % (36.0-47.0); HEMOGLOBIN 9.2 g/dl (12.0-15.5); MEAN CORPUSCULAR HEMOGLOBIN 35.2 pg (27.0-33.0); MEAN CORPUSCULAR HGB CONC 32.6 g/dl (32.0-36.5); RED BLOOD COUNT 2.61 10^6/uL (4.00-5.40)
[2022-05-16 08:49] LABS: PLATELET COUNT, AUTOMATED 8 10^3/uL (150-450)
[2022-05-16 08:51] LABS: WHITE BLOOD COUNT 60.2 10^3/uL (4.0-10.0)
[2022-05-16 09:22] LABS: ALBUMIN 2.9 GM/DL (3.2-5.2); ALT/SGPT 17 U/L (12-78); BILIRUBIN,TOTAL 0.3 MG/DL (0.2-1.0); BLOOD UREA NITROGEN 17 MG/DL (7-18); CALCIUM LEVEL 8.8 MG/DL (8.8-10.2); CARBON DIOXIDE LEVEL 29 MEQ/L (21-32); CHLORIDE LEVEL 103 MEQ/L (98-107); CREATININE FOR GFR 0.81 MG/DL (0.55-1.30); GLOMERULAR FILTRATION RATE > 60.0 (>45); GLUCOSE, FASTING 97 MG/DL (70-100); SODIUM LEVEL 136 MEQ/L (136-145)
[2022-05-16] MEDS ORDERED: POTASSIUM CHLORIDE 10MEQ SR TABLET PO ONE ×2 (18:00→20:00)
[2022-05-16] MEDS ORDERED: ROMIPLOSTIM 250MCG VIAL (NPLATE) (J2796 PER 10MCG) (FOR ONCOLOGY) SC ONE (20:00)
[2022-05-16] MEDS: BISACODYL 10 MG SUPP PR SCH (21:00)
[2022-05-16] MEDS: SENNA 8.6 MG TAB (SENOKOT) PO SCH (21:32)
[2022-05-16] MEDS: ROSUVASTATIN 10 MG TAB (CRESTOR) PO SCH (21:33)
[2022-05-16] MEDS: CEPACOL LOZENGE PO PRN (21:43)
[2022-05-17 06:00] VITALS: BP 129/70
[2022-05-17 06:19] LABS: HEMATOCRIT 27.8 % (36.0-47.0); HEMOGLOBIN 8.9 g/dl (12.0-15.5); MEAN CORPUSCULAR VOLUME 109.4 fl (80.0-96.0); RED BLOOD COUNT 2.54 10^6/uL (4.00-5.40)
[2022-05-17 06:25] LABS: PLATELET COUNT, AUTOMATED 9 10^3/uL (150-450); WHITE BLOOD COUNT 55.7 10^3/uL (4.0-10.0)
[2022-05-17 06:58] LABS: ALT/SGPT 21 U/L (12-78); BILIRUBIN,TOTAL 0.4 MG/DL (0.2-1.0); BLOOD UREA NITROGEN 22 MG/DL (7-18); CALCIUM LEVEL 9.1 MG/DL (8.8-10.2); CARBON DIOXIDE LEVEL 28 MEQ/L (21-32); CHLORIDE LEVEL 107 MEQ/L (98-107); CREATININE FOR GFR 0.84 MG/DL (0.55-1.30); GLOMERULAR FILTRATION RATE > 60.0 (>45); GLUCOSE, FASTING 94 MG/DL (70-100); POTASSIUM SERUM 4.2 MEQ/L (3.5-5.1); SODIUM LEVEL 140 MEQ/L (136-145); TOTAL PROTEIN 6.7 GM/DL (6.4-8.2)
[2022-05-17] MEDS: BISACODYL 10 MG SUPP PR SCH ×2 (09:00→20:47)
[2022-05-17] MEDS: predniSONE 20 MG TAB PO SCH (09:08)
[2022-05-17] MEDS: guaiFENesin ER 600 MG TAB PO SCH ×2 (09:08→20:31)
[2022-05-17] MEDS: MIRALAX *UNIT DOSE* 17GM PACKET PO SCH (09:09)
[2022-05-17] MEDS: valACYclovir HCL 500 MG TAB PO SCH (09:09)
[2022-05-17] MEDS: DOCUSATE SODIUM 100MG CAPSULE PO SCH ×2 (09:09→20:31)
[2022-05-17] MEDS: FERROUS SULFATE 325MG TAB PO SCH ×2 (09:09→20:31)
[2022-05-17] MEDS: PANTOPRAZOLE 40MG VIAL IV SCH (09:09)
[2022-05-17] MEDS: MULTIVITAMINS/MINERALS THERAP 1 TAB PO SCH (09:09)
[2022-05-17] MEDS: atenoloL 50 MG TAB PO SCH (09:13)
[2022-05-17] MEDS: DIGOXIN 0.125 MG TAB PO SCH (09:14)
[2022-05-17 14:00] VITALS: BP_SYST 133; BP_SYST 135; BP_DIAS 73; BP_DIAS 75
[2022-05-17] MEDS: SENNA 8.6 MG TAB (SENOKOT) PO SCH (20:31)
[2022-05-17] MEDS: ROSUVASTATIN 10 MG TAB (CRESTOR) PO SCH (20:31)
[2022-05-17] MEDS: CEPACOL LOZENGE PO PRN (20:41)
[2022-05-17] MEDS ORDERED: diphenhydrAMINE 25MG CAP PO ONE (22:00)
[2022-05-18 06:00] VITALS: BP 125/80
[2022-05-18 06:44] LABS: HEMOGLOBIN 8.9 g/dl (12.0-15.5); MEAN CORPUSCULAR HEMOGLOBIN 35.2 pg (27.0-33.0); MEAN CORPUSCULAR HGB CONC 31.8 g/dl (32.0-36.5); MEAN CORPUSCULAR VOLUME 110.7 fl (80.0-96.0); RED BLOOD COUNT 2.53 10^6/uL (4.00-5.40)
[2022-05-18 06:57] LABS: WHITE BLOOD COUNT 56.9 10^3/uL (4.0-10.0)
[2022-05-18 06:58] LABS: PLATELET COUNT, AUTOMATED 11 10^3/uL (150-450)
[2022-05-18] MEDS: PANTOPRAZOLE 40MG VIAL IV SCH (08:38)
[2022-05-18] MEDS: DOCUSATE SODIUM 100MG CAPSULE PO SCH ×2 (08:39→20:37)
[2022-05-18] MEDS: MULTIVITAMINS/MINERALS THERAP 1 TAB PO SCH (08:39)
[2022-05-18] MEDS: DIGOXIN 0.125 MG TAB PO SCH (08:40)
[2022-05-18] MEDS: FERROUS SULFATE 325MG TAB PO SCH ×2 (08:41→20:37)
[2022-05-18] MEDS: guaiFENesin ER 600 MG TAB PO SCH ×2 (08:41→20:37)
[2022-05-18] MEDS: atenoloL 50 MG TAB PO SCH (08:41)
[2022-05-18] MEDS: valACYclovir HCL 500 MG TAB PO SCH (08:41)
[2022-05-18] MEDS: BISACODYL 10 MG SUPP PR SCH ×2 (08:41→20:42)
[2022-05-18] MEDS: predniSONE 20 MG TAB PO SCH (08:41)
[2022-05-18 08:50] LABS: ATYPICAL LYMPH 2 % (0-5); LYMPHOCYTES 86 % (16-44); MONOCYTES 3 % (0-5); NEUTROPHILS 9 % (28-66); SMUDGE CELLS 2+
[2022-05-18 08:51] LABS: PLATELET ESTIMATE DECREASED (NORMAL)
[2022-05-18 08:52] LABS: TEAR DROP CELLS 1+
[2022-05-18] MEDS: MIRALAX *UNIT DOSE* 17GM PACKET PO SCH (08:56)
[2022-05-18 14:00] VITALS: BP 116/67
[2022-05-18] MEDS: SENNA 8.6 MG TAB (SENOKOT) PO SCH (20:37)
[2022-05-18] MEDS: CEPACOL LOZENGE PO PRN (20:37)
[2022-05-18] MEDS: ROSUVASTATIN 10 MG TAB (CRESTOR) PO SCH (20:37)
[2022-05-18] MEDS ORDERED: diphenhydrAMINE 50MG CAP PO PRN (20:45)
[2022-05-18 22:00] VITALS: BP 127/69
[2022-05-19 06:00] VITALS: BP 122/66
[2022-05-19 07:01] LABS: HEMATOCRIT 28.8 % (36.0-47.0); HEMOGLOBIN 9.3 g/dl (12.0-15.5); MEAN CORPUSCULAR HGB CONC 32.3 g/dl (32.0-36.5); MEAN CORPUSCULAR VOLUME 108.3 fl (80.0-96.0); RED BLOOD COUNT 2.66 10^6/uL (4.00-5.40)
[2022-05-19 07:08] LABS: PLATELET COUNT, AUTOMATED 20 10^3/uL (150-450)
[2022-05-19 07:11] LABS: WHITE BLOOD COUNT 63.5 10^3/uL (4.0-10.0)
[2022-05-19 07:40] LABS: BLOOD UREA NITROGEN 22 MG/DL (7-18); CALCIUM LEVEL 9.2 MG/DL (8.8-10.2); CARBON DIOXIDE LEVEL 27 MEQ/L (21-32); CHLORIDE LEVEL 106 MEQ/L (98-107); CREATININE FOR GFR 0.89 MG/DL (0.55-1.30); GLOMERULAR FILTRATION RATE > 60.0 (>45); GLUCOSE, FASTING 92 MG/DL (70-100); POTASSIUM SERUM 3.9 MEQ/L (3.5-5.1); SODIUM LEVEL 138 MEQ/L (136-145)
[2022-05-19 07:54] LABS: ATYPICAL LYMPH 4 % (0-5); LYMPHOCYTES 82 % (16-44); MONOCYTES 3 % (0-5); NEUTROPHILS 11 % (28-66); SMUDGE CELLS 2+
[2022-05-19 07:55] LABS: GIANT PLATELETS 1+; PLATELET ESTIMATE DECREASED (NORMAL)
[2022-05-19 07:56] LABS: OVALOCYTES 1+
[2022-05-19 07:58] LABS: TEAR DROP CELLS 1+
[2022-05-19] MEDS: MIRALAX *UNIT DOSE* 17GM PACKET PO SCH (08:20)
[2022-05-19] MEDS: DIGOXIN 0.125 MG TAB PO SCH (08:20)
[2022-05-19] MEDS: PANTOPRAZOLE 40MG VIAL IV SCH (08:20)
[2022-05-19] MEDS: predniSONE 20 MG TAB PO SCH (08:20)
[2022-05-19 08:21] VITALS: BP 122/66
[2022-05-19] MEDS: atenoloL 50 MG TAB PO SCH (08:21)
[2022-05-19] MEDS: valACYclovir HCL 500 MG TAB PO SCH (08:21)
[2022-05-19] MEDS: MULTIVITAMINS/MINERALS THERAP 1 TAB PO SCH (08:21)
[2022-05-19] MEDS: guaiFENesin ER 600 MG TAB PO SCH (08:21)
[2022-05-19] MEDS: DOCUSATE SODIUM 100MG CAPSULE PO SCH (08:21)
[2022-05-19] MEDS: FERROUS SULFATE 325MG TAB PO SCH (08:21)
[2022-05-19] MEDS: BISACODYL 10 MG SUPP PR SCH (08:32)
[2022-05-19] MEDS ORDERED: PRED20TA PO (10:59)
[2022-05-19] MEDS ORDERED: MUCI600T31 PO (10:59)
== END 2022-05-19 11:35 | disposition home or self-care (01) | DRG 813 ==
LOC: M PCU 17:16 → M MS5PR 05-16 10:30
PROVIDERS: ADMIT Student in an Organized Health Care Education/Training Program; ATTEND Internal Medicine
PROC: 30233R1 Transfusion of Nonautologous Platelets into Peripheral Vein, Percutaneous Approach (ICD-10-PCS; 2022-05-09)
PROC: 07DR3ZX Extraction of Iliac Bone Marrow, Percutaneous Approach, Diagnostic (ICD-10-PCS; principal; 2022-05-12 15:00)
DX: D69.6 Thrombocytopenia, unspecified (principal); C91.10 Chronic lymphocytic leukemia of B-cell type not having achieved remission; I48.19 Other persistent atrial fibrillation; I10 Essential (primary) hypertension; E78.5 Hyperlipidemia, unspecified; D72.89 Other specified disorders of white blood cells; D64.9 Anemia, unspecified; E87.6 Hypokalemia; Z79.899 Other long term (current) drug therapy; Z88.0 Allergy status to penicillin; Z88.1 Allergy status to other antibiotic agents; Z88.5 Allergy status to narcotic agent; Z88.8 Allergy status to other drugs, medicaments and biological substances; Z79.01 Long term (current) use of anticoagulants; Z91.048 Other nonmedicinal substance allergy status; Z92.21 Personal history of antineoplastic chemotherapy; J20.8 Acute bronchitis due to other specified organisms; U09.9 Post COVID-19 condition, unspecified

== ENCOUNTER → 2024-01-29 | Outpatient (CLI) | payer MEDICARE, OTHER ==
[~2024-01-29] MED LIST changes: +ASPI-226 PO; +FAMO20TA PO; +FLEC100T27; +MUCI600T31 PO; +NIAC100T9 PO; +ONDA-284 PO; -ONDA8TAB8 PO; +POTA99CA2 PO; +PROM50TA28 PO; -ROSU10TA6 PO; +ROSU10TA61 PO; +TRIA25CR TOP; +TURM500T PO; +VALA500T5 PO
[2024-01-29 13:02] LABS: HEMATOCRIT 34.9 % (36.0-47.0); HEMOGLOBIN 11.6 g/dl (12.0-15.5); MEAN CORPUSCULAR HEMOGLOBIN 38.2 pg (27.0-33.0); MEAN CORPUSCULAR HGB CONC 33.2 g/dl (32.0-36.5); RED BLOOD COUNT 3.04 10^6/uL (4.00-5.40); WHITE BLOOD COUNT 14.3 10^3/uL (4.0-10.0)
[2024-01-29 13:03] LABS: MEAN CORPUSCULAR VOLUME 114.8 fl (80.0-96.0)
[2024-01-29 13:04] LABS: PLATELET COUNT, AUTOMATED 81 10^3/uL (150-450)
[2024-01-29 13:32] LABS: CALCIUM LEVEL 9.4 MG/DL (8.3-10.6); CREATININE FOR GFR 1.06 MG/DL (0.55-1.30); GLOMERULAR FILTRATION RATE 54.4 (>39); POTASSIUM SERUM 4.1 MMOL/L (3.5-5.1)
== END ==
LOC: M LAB 12:30
PROVIDERS: ATTEND Physician Assistant
DX: I48.0 Paroxysmal atrial fibrillation (principal)

== ENCOUNTER 2024-02-14 16:24 | Inpatient (IN) | payer MEDICARE, OTHER ==
[2024-02-14] VITALS (34 sets, daily range): BP systolic 125–194; BP diastolic 65–93; TEMP 96.4–98; O2SAT 96–100
[~2024-02-14 16:24] MED LIST changes: +VENC1TAB PO
[2024-02-14] MEDS ORDERED: ALLO100T PO (17:23)
[2024-02-14] MEDS: methylPREDNISolone 40MG 1ML VIAL IV SCH (17:47)
[2024-02-14] MEDS ORDERED: niCARdipine IV 40 MG in IV 1 EA IV SCH (19:00)
[2024-02-14] MEDS: hydrALAZINE 20MG/ML 1ML VIAL IV PRN (19:30)
[2024-02-14] MEDS: IMMUNE GLOBULIN 10% 10 GM in IV 1 EA IV SCH (19:59)
[2024-02-14] MEDS: LORazepam 0.5 MG TAB PO PRN (20:07)
[2024-02-14] MEDS ORDERED: OFLO5DRO OU (20:43)
[2024-02-14] MEDS ORDERED: LORA-1041 PO (20:43)
[2024-02-14] MEDS ORDERED: THERTAB52 PO (20:45)
[2024-02-14] MEDS ORDERED: HOME MED LIST COMPLETE! XX SCH (20:45)
[2024-02-14] MEDS: IMMUNE GLOBULIN 10% 20 GM in IV 1 EA IV SCH (21:36)
[2024-02-14] MEDS: IMMUNE GLOBULIN 10% 40 GM in IV 1 EA IV SCH (22:56)
[2024-02-15] VITALS (39 sets, daily range): BP systolic 123–165; BP diastolic 61–88; TEMP 97–98.2; O2SAT 91–98
[2024-02-15] MEDS: UNRESOLVED PATIENT OWN MED ORDER XX SCH (00:01)
[2024-02-15 06:19] LABS: HEMATOCRIT 31.9 % (36.0-47.0); HEMOGLOBIN 10.8 g/dl (12.0-15.5); MEAN CORPUSCULAR HEMOGLOBIN 37.5 pg (27.0-33.0); MEAN CORPUSCULAR HGB CONC 33.9 g/dl (32.0-36.5); MEAN CORPUSCULAR VOLUME 110.8 fl (80.0-96.0); RED BLOOD COUNT 2.88 10^6/uL (4.00-5.40); WHITE BLOOD COUNT 21.4 10^3/uL (4.0-10.0)
[2024-02-15 06:29] LABS: PLATELET COUNT, AUTOMATED 8 10^3/uL (150-450)
[2024-02-15 06:46] LABS: ALBUMIN 3.8 G/DL (3.2-5.2); ALKALINE PHOSPHATASE 87 U/L (46-116); ALT/SGPT 18 U/L (7.0-40); AST/SGOT 17 U/L (<34); BILIRUBIN,TOTAL 0.6 MG/DL (0.3-1.2); BLOOD UREA NITROGEN 25 MG/DL (9-23); CALCIUM LEVEL 8.6 MG/DL (8.3-10.6); CARBON DIOXIDE LEVEL 20 MMOL/L (20-31); CHLORIDE LEVEL 105 MMOL/L (98-107); CREATININE FOR GFR 0.63 MG/DL (0.55-1.30); GLOMERULAR FILTRATION RATE > 60.0 (>39); GLUCOSE, FASTING 134 MG/DL (74-106); POTASSIUM SERUM 4.2 MMOL/L (3.5-5.1); SODIUM LEVEL 135 MMOL/L (136-145)
[2024-02-15 07:11] LABS: ATYPICAL LYMPH 9 % (0-5); LYMPHOCYTES 65 % (16-44); MONOCYTES 6 % (0-5); NEUTROPHILS 20 % (28-66)
[2024-02-15 07:13] LABS: PLATELET ESTIMATE DECREASED (NORMAL)
[2024-02-15] MEDS: valACYclovir HCL 500 MG TAB PO SCH (08:04)
[2024-02-15] MEDS: atenoloL 50 MG TAB PO SCH (08:04)
[2024-02-15] MEDS: FAMOTIDINE 40MG/5ML ORAL SUSPENSON 50ML BOTTLE PO SCH (08:05)
[2024-02-15] MEDS ORDERED: IMMUNE GLOBULIN 10% 70 GM in IV 1 EA IV SCH (09:00)
[2024-02-15] MEDS ORDERED: FLECAINIDE 50MG TABLET PO SCH (09:00)
[2024-02-15] MEDS: LORATADINE 10 MG TAB PO SCH (09:29)
[2024-02-15] MEDS: ASCORBIC ACID 250 MG TAB PO SCH (09:29)
[2024-02-15] MEDS: FOLIC ACID 1MG TAB PO SCH (11:30)
[2024-02-15] MEDS: CYANOCOBALAMIN 500 MCG TAB PO SCH (11:30)
[2024-02-15] MEDS: PYRIDOXINE 50 MG TAB PO SCH (11:31)
[2024-02-15] MEDS: MULTIVITAMINS/MINERALS THERAP 1 TAB PO SCH (11:31)
[2024-02-15] MEDS: NIACIN 100MG TAB PO SCH (11:31)
[2024-02-15 11:34] LABS: HEMATOCRIT 32.3 % (36.0-47.0); MEAN CORPUSCULAR HEMOGLOBIN 37.7 pg (27.0-33.0); MEAN CORPUSCULAR HGB CONC 34.1 g/dl (32.0-36.5); MEAN CORPUSCULAR VOLUME 110.6 fl (80.0-96.0); RED BLOOD COUNT 2.92 10^6/uL (4.00-5.40); WHITE BLOOD COUNT 26.9 10^3/uL (4.0-10.0)
[2024-02-15] MEDS ORDERED: PILL CUTTER 1 EACH XX PRN (11:40)
[2024-02-15 11:48] LABS: PLATELET COUNT, AUTOMATED 24 10^3/uL (150-450)
[2024-02-15] MEDS: VITAMIN D 1,000 INTERNATIONAL UNITS TABLET PO SCH (13:46)
[2024-02-15] MEDS: ROSUVASTATIN 10 MG TAB (CRESTOR) PO SCH (21:27)
[2024-02-16 06:29] LABS: BASO # 0.1 10^3/uL (0.0-0.2); BASO % 0.3 % (0.0-1.0); HEMATOCRIT 34.1 % (36.0-47.0); HEMOGLOBIN 11.3 g/dl (12.0-15.5); LYMPH # 28.6 10^3/uL (1.5-5.0); LYMPH % 79.3 % (24.0-44.0); MEAN CORPUSCULAR HEMOGLOBIN 37.7 pg (27.0-33.0); MEAN CORPUSCULAR HGB CONC 33.1 g/dl (32.0-36.5); MEAN CORPUSCULAR VOLUME 113.7 fl (80.0-96.0); MONO # 2.2 10^3/uL (0.0-0.8); MONO % 6.2 % (2.0-8.0); NEUTROPHILS % 13.8 % (36.0-66.0)
[2024-02-16 06:34] LABS: PLATELET COUNT, AUTOMATED 39 10^3/uL (150-450)
[2024-02-16 07:54] VITALS: BP 132/82
[2024-02-16] MEDS: FAMOTIDINE 20 MG TAB PO SCH (07:55)
[2024-02-16] MEDS ORDERED: PRED20TA PO (09:18)
== END 2024-02-16 09:28 | disposition home or self-care (01) | DRG 813 ==
LOC: M ICU 16:34 → M MSPAV 02-15 15:28
PROVIDERS: ADMIT Internal Medicine Pulmonary Disease; ATTEND General Practice
DX: D69.3 Immune thrombocytopenic purpura (principal); C91.10 Chronic lymphocytic leukemia of B-cell type not having achieved remission; I10 Essential (primary) hypertension; I48.91 Unspecified atrial fibrillation; E78.5 Hyperlipidemia, unspecified; Z91.148 Patient's other noncompliance with medication regimen for other reason; D72.829 Elevated white blood cell count, unspecified; Z88.0 Allergy status to penicillin; Z88.8 Allergy status to other drugs, medicaments and biological substances; Z88.5 Allergy status to narcotic agent; Z79.899 Other long term (current) drug therapy; Z87.891 Personal history of nicotine dependence

== ENCOUNTER → 2024-03-05 | Outpatient (CLI) | payer MEDICARE, OTHER ==
[~2024-03-05] MED LIST changes: +ACETAMINOPHEN 325 MG TAB As Ordered ONE; +ALLO100T PO; +LIDOCAINE 1% MDV 20ML VIAL As Ordered ONE; +LORA-1041 PO; +NS 250 ML IV ONE; +OFLO5DRO OU; +THERTAB52 PO; +diphenhydrAMINE 25MG CAP As Ordered ONE
[2024-03-05 08:36] LABS: HEMATOCRIT 35.2 % (36.0-47.0); HEMOGLOBIN 11.7 g/dl (12.0-15.5); MEAN CORPUSCULAR HEMOGLOBIN 36.9 pg (27.0-33.0); MEAN CORPUSCULAR HGB CONC 33.2 g/dl (32.0-36.5); RED BLOOD COUNT 3.17 10^6/uL (4.00-5.40); WHITE BLOOD COUNT 19.3 10^3/uL (4.0-10.0)
[2024-03-05 08:42] LABS: PLATELET COUNT, AUTOMATED 14 10^3/uL (150-450)
[2024-03-05 08:46] LABS: INR 0.91
[2024-03-05 09:04] LABS: ATYPICAL LYMPH 18 % (0-5); LYMPHOCYTES 70 % (16-44); MONOCYTES 3 % (0-5); NEUTROPHILS 9 % (28-66)
[2024-03-05 09:05] LABS: ANISOCYTOSIS 1+; PLATELET ESTIMATE DECREASED (NORMAL)
[2024-03-05] MEDS: diphenhydrAMINE 25MG CAP PO ONE (10:25)
[2024-03-05] MEDS: ACETAMINOPHEN TAB 650MG DOSE (2X325MG) PO ONE (10:27)
[2024-03-05 10:40] VITALS: BP 125/67; TEMP 97.8; O2SAT 97
[2024-03-05 12:05] VITALS: BP 124/69; TEMP 98; O2SAT 97
== END ==
LOC: M IRPRO 07:33
PROVIDERS: ATTEND Specialist
DX: C91.10 Chronic lymphocytic leukemia of B-cell type not having achieved remission (principal); D69.6 Thrombocytopenia, unspecified
CPT/HCPCS: 36415; 38222; 77012; 85025; 85049; 85055; 85610; 88300; 88305; 88311; 88313; P9034

== ENCOUNTER → 2024-06-20 | Outpatient (CLI) | payer MEDICARE, OTHER ==
[~2024-06-20] MED LIST changes: -ACETAMINOPHEN 325 MG TAB As Ordered ONE; +FLEC1TAB PO; +LEVO1TAB39 PO; +LEVO1TAB40; -LIDOCAINE 1% MDV 20ML VIAL As Ordered ONE; -NS 250 ML IV ONE; +ZANU80CA PO; -diphenhydrAMINE 25MG CAP As Ordered ONE
[2024-06-20 12:01] LABS: MAGNESIUM LEVEL 2.1 MG/DL (1.8-2.4)
[2024-06-20 12:07] LABS: THYROID STIMULATING HORMONE 2.173 uIU/ML (0.55-4.78)
== END ==
LOC: M LAB 09:58
PROVIDERS: ATTEND Physician Assistant
DX: I48.0 Paroxysmal atrial fibrillation (principal)

== ENCOUNTER 2024-07-09 10:53 | Day surgery (SDC) | payer MEDICARE, OTHER ==
[~2024-07-09] VITALS: Ht 165.1 cm; Wt 69.9 kg
[2024-07-09] MEDS: METOCLOPRAMIDE INJ 10MG/2ML VIAL IV ONE (12:43)
[2024-07-09] MEDS: diphenhydrAMINE 50MG/ML VIAL IV ONE (12:43)
[2024-07-09] MEDS ORDERED: propofoL 200 MG/20 ML VIAL As Ordered ONE (13:10)
[2024-07-09] MEDS ORDERED: LIDOCAINE 2% 100MG/5ML SDV (FOR ANES.) As Ordered ONE (13:10)
[2024-07-09 14:39] VITALS: BP 121/68; TEMP 97.4; O2SAT 100
[2024-07-11] MEDS ORDERED: PROBCAP14 PO (12:02)
== END 2024-07-09 14:45 | disposition home or self-care (01) ==
LOC: M SDC 10:53
PROVIDERS: ATTEND Internal Medicine Cardiovascular Disease
DX: I48.11 Longstanding persistent atrial fibrillation (principal); Z88.0 Allergy status to penicillin; Z88.1 Allergy status to other antibiotic agents; Z88.5 Allergy status to narcotic agent
CPT/HCPCS: 92960; 93005; J1200; J2765

== ENCOUNTER → 2024-07-24 | Outpatient (CLI) | payer MEDICARE, OTHER ==
[~2024-07-24] MED LIST changes: +PROBCAP14 PO
[2024-07-24 13:46] LABS: BASO % 0.8 % (0.0-1.0); EOS # 0.1 10^3/uL (0.0-0.5); EOS % 3.6 % (0.0-3.0); HEMATOCRIT 39.7 % (36.0-47.0); LYMPH % 28.7 % (24.0-44.0); MEAN CORPUSCULAR HGB CONC 32.7 g/dl (32.0-36.5); MEAN CORPUSCULAR VOLUME 103.9 fl (80.0-96.0); MONO # 0.1 10^3/uL (0.0-0.8); MONO % 3.3 % (2.0-8.0); NEUTROPHILS # 2.3 10^3/uL (1.5-8.5); NEUTROPHILS % 63.3 % (36.0-66.0); RED BLOOD COUNT 3.82 10^6/uL (4.00-5.40); WHITE BLOOD COUNT 3.6 10^3/uL (4.0-10.0)
[2024-07-24 14:03] LABS: ALBUMIN 4.3 G/DL (3.2-5.2); ALKALINE PHOSPHATASE 114 U/L (35-104); ALT/SGPT 22 U/L (7.0-40); AST/SGOT 39 U/L (<34); BILIRUBIN,TOTAL 0.4 MG/DL (0.3-1.2); BLOOD UREA NITROGEN 25 MG/DL (9-23); CALCIUM LEVEL 10.4 MG/DL (8.3-10.6); CARBON DIOXIDE LEVEL 24 MMOL/L (20-31); CHLORIDE LEVEL 105 MMOL/L (98-107); CREATININE FOR GFR 0.87 MG/DL (0.55-1.30); GLOMERULAR FILTRATION RATE > 60.0 (>39); GLUCOSE, FASTING 88 MG/DL (74-106); POTASSIUM SERUM 5.9 MMOL/L (3.5-5.1); SODIUM LEVEL 140 MMOL/L (136-145); TOTAL PROTEIN 7.1 G/DL (5.7-8.2)
[2024-07-24 14:14] LABS: PLATELET COUNT, AUTOMATED 31 10^3/uL (150-450)
== END ==
LOC: M LAB 12:36
PROVIDERS: ATTEND Specialist
DX: C85.90 Non-Hodgkin lymphoma, unspecified, unspecified site (principal); C91.10 Chronic lymphocytic leukemia of B-cell type not having achieved remission

== ENCOUNTER → 2024-08-22 | Outpatient (REF) | payer MEDICARE, OTHER ==
[2024-08-22 11:22] LABS: ALBUMIN 4.2 G/DL (3.2-5.2); ALKALINE PHOSPHATASE 98 U/L (35-104); ALT/SGPT 17 U/L (7.0-40); AST/SGOT 21 U/L (<34); BILIRUBIN,TOTAL 0.4 MG/DL (0.3-1.2); BLOOD UREA NITROGEN 30 MG/DL (9-23); CALCIUM LEVEL 9.7 MG/DL (8.3-10.6); CARBON DIOXIDE LEVEL 25 MMOL/L (20-31); CHLORIDE LEVEL 109 MMOL/L (98-107); CHOLESTEROL LEVEL 197 MG/DL (<200); CHOLESTEROL RISK RATIO 2.35 (<5); CREATININE FOR GFR 0.95 MG/DL (0.55-1.30); GLOMERULAR FILTRATION RATE > 60.0 (>39); GLUCOSE, FASTING 101 MG/DL (74-106); HDL CHOLESTEROL 83.7 MG/DL (>40); LDL CHOLESTEROL 97.7 MG/DL (<100); NON-HDL-C 113.3 MG/DL; POTASSIUM SERUM 4.5 MMOL/L (3.5-5.1); SODIUM LEVEL 143 MMOL/L (136-145); TOTAL PROTEIN 6.3 G/DL (5.7-8.2); TRIGLYCERIDES LEVEL 78 MG/DL (<150)
== END ==
LOC: M LAB REF 10:30
PROVIDERS: ATTEND Physician Assistant
DX: I48.0 Paroxysmal atrial fibrillation (principal); E78.00 Pure hypercholesterolemia, unspecified

== ENCOUNTER → 2025-06-12 | Outpatient (CLI) | payer MEDICARE, OTHER ==
[~2025-06-12] MED LIST changes: +LIFI1DRO4 OU; -PRED50TA PO; +PRED50TA57 PO; -TRIA25CR TOP; +TRIA80CR15 TOP
== END ==
LOC: M INFU 10:29
PROVIDERS: ATTEND Specialist
DX: C91.90 Lymphoid leukemia, unspecified not having achieved remission (principal); D80.1 Nonfamilial hypogammaglobulinemia; Z88.8 Allergy status to other drugs, medicaments and biological substances; Z88.0 Allergy status to penicillin; Z88.1 Allergy status to other antibiotic agents; Z88.5 Allergy status to narcotic agent; Z91.89 Other specified personal risk factors, not elsewhere classified; Z53.9 Procedure and treatment not carried out, unspecified reason

== ENCOUNTER 2025-06-27 08:31 | Outpatient (CLI) | payer MEDICARE, OTHER ==
[~2025-06-27] VITALS: Ht 165.1 cm; Wt 70.5 kg
[~2025-06-27 08:31] MED LIST changes: +ALBUTEROL SULFATE 2.5 MG/0.5 ML INH CONCENTRATE NEB SOLN INH PRN; +EPINEPHrine INJ 1 MG/ML 1ML AMP IM PRN; +NS (Normal Saline) 0.9% 1,000 ML IV SCH; -ROSU10TA61 PO; +ROSU10TA90 PO; +ZANU160T PO; +diphenhydrAMINE 50 MG/ML VIAL IV PRN
[2025-06-27 08:45] VITALS: BP 113/63; O2SAT 100
[2025-06-27] MEDS: diphenhydrAMINE 25MG PO PRIOR TO INFUSION PO ONE (09:30)
[2025-06-27] MEDS: IMMUNE GLOBULIN 10% 5 GM in IV 1 EA IV ONE (09:57)
[2025-06-27] MEDS: IMMUNE GLOBULIN 10% 10 GM in IV 1 EA IV ONE (09:59)
[2025-06-27] MEDS: IMMUNE GLOBULIN 10% 20 GM in IV 1 EA IV ONE (10:00)
[2025-06-27 10:30] VITALS: BP 104/55; O2SAT 100
[2025-06-27 11:00] VITALS: BP 109/55; O2SAT 100
[2025-06-27 11:30] VITALS: BP 110/61; O2SAT 100
[2025-06-27 12:30] VITALS: BP 117/87; O2SAT 100
[2025-06-27 13:40] VITALS: BP 116/56; O2SAT 98
== END 2025-06-27 13:40 | disposition home or self-care (01) ==
LOC: M INFU 08:31
PROVIDERS: ATTEND Specialist
DX: C91.90 Lymphoid leukemia, unspecified not having achieved remission (principal); D80.1 Nonfamilial hypogammaglobulinemia; Z88.8 Allergy status to other drugs, medicaments and biological substances; Z88.0 Allergy status to penicillin; Z88.1 Allergy status to other antibiotic agents; Z88.5 Allergy status to narcotic agent; Z51.89 Encounter for other specified aftercare
CPT/HCPCS: 96365; 96366; J1459; J2919

== ENCOUNTER → 2025-07-23 | Outpatient (CLI) | payer MEDICARE, OTHER ==
[~2025-07-23] MED LIST changes: -ALBUTEROL SULFATE 2.5 MG/0.5 ML INH CONCENTRATE NEB SOLN INH PRN; -EPINEPHrine INJ 1 MG/ML 1ML AMP IM PRN; +NIAC100T3 PO; -NIAC100T9 PO; -NS (Normal Saline) 0.9% 1,000 ML IV SCH; +RED600CA7 PO; -REDCAP3 PO; -diphenhydrAMINE 50 MG/ML VIAL IV PRN
== END ==
LOC: M RAD 06:43
DX: R74.01 Elevation of levels of liver transaminase levels (principal); D50.9 Iron deficiency anemia, unspecified

== ENCOUNTER → 2025-08-19 | Outpatient (CLI) | payer MEDICARE, OTHER ==
[~2025-08-19] MED LIST changes: +GASTROGRAFIN SOLUTION 30 ML ONE; +ISOVUE-370 76% 100 ML VIAL ONE
== END ==
LOC: M PLAIMG 07:58
PROVIDERS: ATTEND Specialist
DX: C91.10 Chronic lymphocytic leukemia of B-cell type not having achieved remission (principal)
CPT/HCPCS: 74160; Q9963; Q9967